=== PATIENT | female | born 1940 | race Hispanic/Latino ===

== ENCOUNTER 2017-01-20 06:31 | Day surgery (SDC) | payer MEDICARE ==
--- NOTE | 2017-01-19 20:14 | Admit Criteria Form ---
Admission Criteria Documentation: AMBULATORY SURGERY EXCEPTION CRITERIA Ambulatory Surgery Exception Criteria ( Place 'X' for any and all applicable criteria): Surgery or procedure performed on ambulatory basis may require inpatient stay for[A] ANY ONE of the following(1)(2)(3)(4)(5)(6)(7)(8)(9): [X] I. A preoperative situation, condition, or finding that warrants inpatient stay as indicated by ANY ONE of the following: [] a) Inpatient care needed because of severity of a disease or condition rather than the surgery (eg, severe cardiac or respiratory disease, severe infection) (15) (16 ) (17) (18) [] b) Emergent procedure (eg, angioplasty for acute ischemia)(19) [] c) Complex surgical approach or situation as indicated by ANY ONE of the following(3): [] i) Open approach needed instead of usual endoscopic, transcatheter, or other less invasive procedure [] ii) Difficult approach because of previous operation [] iii) Airway monitoring required after open neck procedures(20)(21) [] iv) Large mass requiring unusually extensive dissection [] v) Additional complicating feature requiring inpatient care (eg, drain management)(22(23): [X] d) Major surgery in a pt with high anesthetic risk as indicated by ANY ONE of the following (2)(3)(5)(7)(8): [X] i) ASA risk class III or higher (severe systemic disease impairing function) [D] [] ii) Advanced age (eg, older than 85 years)(14)(24) [] iii) Symptomatic heart failure(25) [] iv) Symptomatic asthma or COPD(8)(21) [] v) Morbid obesity with hemodynamic or respiratory problems(20)( 21)(26)(27) [] vi) Obstructive sleep apnea(20)(21) [] vii) Former premature infants who are younger than 60 weeks [] viii) High risk for severe postoperative abnormalities (eg, severe postoperative hypocalcemia after parathyroidectomy for severe hyperparathyroidism)(27)( 28) [] ix) Unstable angina(25) [] e) Drug-related risk requiring inpatient stay as indicated by ANY ONE of the following(5)(10)(14)(32)(33) [] i) Procedure requires discontinuing drugs or other therapy (eg , antiarrhythmic medication, antiseizure medication), which necessitates inpatient observation or treatment.(18)(31) [] ii) Major surgery and high risk drug use as indicated by ANY ONE of the following: [] 1) Active abuse of cocaine or similar drug [] 2) Monoamine oxidase inhibitor use [] 3) Other drug identified as posing risk [] f) Inadequate outpatient care situation as indicated by ANY ONE of the following(5)(10)(14)(32)(33) [] i) Patient lives remote from medical facility and procedure has urgent complication potential, and temporary nearby residence cannot be arranged [] ii) Patient will have postprocedure incapacitation and inadequate assistance at home, or alternative level of care cannot be arranged. [] iii) Patient will have long general anesthesia or procedure side effect resolution time, and competent person to stay with patient on first postoperative night at home or alternative level of care cannot be arranged. []iv) Other inadequate outpatient situation that cannot be handled by other means [] II. A perioperative event, condition, or finding that warrants inpatient stay as indicated by ANY ONE of the following (1)(2)(3): [] a) Inadequate physiologic recovery: cardiovascular, respiratory, or hemodynamic status not normal or near preoperative baseline(18) [] b) Hemodynamic instability [] c) Patient not alert with near normal or baseline mental status [] d) Temperature not normal or as expected and not appropriate for outpatient treatment of condition [] e) Ambulatory or appropriate activity level status not yet achieved post procedure [E](34)(35)(36) [] f) Operative site not appropriate (eg, unexpected or excessive drainage or bleeding) [] g) Postoperative effects not resolved or adequately managed (eg, significant pain or vomiting not appropriate for outpatient or next level of care)(10)(12) [] h) Complicating features requiring inpatient care as indicated by ANY ONE of the following(37): [] i) Severe complications of procedure (eg, bowel injury, airway compromise, vascular injury,severe hemorrhage) [] ii) Extensive (eg, dissection far beyond usual scope of procedure ) or prolonged (eg, 120 minutes beyond usual) surgery needed requiring inpatient postoperative care [] iii) Conversion to an open or complex procedure that requires inpatient care (eg, open vs laparoscopic cholecystectomy, abdominal vs vaginal hysterectomy)(38) [] iv) Comorbid condition or test result identified during or post procedure that requires inpatient care (7) [] v) Malignant hyperthermia(30) [] vi) Other complicating feature requiring inpatient care(22)(23) Inpatient stay may be needed until ALL of the following are present (1)(2)(3)(4) (5)(6)(10)(14)(33)(40): []a) Physiologic recovery: cardiovascular, respiratory, and hemodynamic status normal or near preoperative baseline []b) Hemodynamic stability []c) Patient alert, with near normal or baseline mental status []d) Temperature appropriate: patient afebrile or temperature appropriate for outpt treatment of condition []e) Activity level appropriate: ambulatory or appropriate activity level post procedure []f) Operative site appropriate as indicated by ALL of the following: []i) Site dry or with expected drainage []ii) Any blood noted is as expected for procedure. []g) Postoperative effects resolved or managed as indicated by ALL of the following: []i) Pain management appropriate for outpatient (or next level of) care(10) []ii) Minimal nausea and vomiting: if present, successfully treated with oral medication(12) []iii) Headache, dizziness, or drowsiness (if present) are mild. []h) Voiding status acceptable as indicated by ANY ONE of the following: []i) Voiding spontaneously []ii) No voiding but instructions given for follow-up in 6 to 8 hours []iii) Urinary catheter in place, and instructions given for follow-up []i) Complicating features requiring inpatient care manageable at a lower level of care(37) []j) Comorbid conditions manageable at a lower level of care(37) The original [employer] content created by [employer] has been revised. The portions of the content which have been revised are identified through the use of italic text or in bold, and [employer] has neither reviewed nor approved the modified material. All other unmodified content is copyright [employer]. Please see references footnoted in the original [employer] edition 2016
[~2017-01-20 06:31] MED LIST: FLAGYL 500 MG/100 ML 500 MG/100 ML BAG IV SCH; NACL 0.9% 1000 ML 1,000 ML IV SCH; NACL 0.9% IR ONE; PEPCID PO NR; XYLOCAINE 2% UROJET UR ONE
[2017-01-20] MEDS ORDERED: XYLOCAINE MPF 2% ONE (06:56)
[2017-01-20] MEDS ORDERED: SUBLIMAZE ONE ×2 (06:56→08:29)
[2017-01-20] MEDS ORDERED: ZOFRAN ONE ×2 (06:56)
[2017-01-20] MEDS ORDERED: DECADRON ONE (06:56)
[2017-01-20] MEDS ORDERED: DIPRIVAN 10 MG/ML IV ONE ×2 (06:56)
--- NOTE | 2017-01-20 07:13 | Anesthesia Consultation ---
Anesthesia Consult and Med Hx Date of service: 01/20/17 - Airway Anesthetic Teeth Evaluation: Edentulous ROM Head & Neck: Adequate Mental/Hyoid Distance: Adequate Mallampati Class: Class II Intubation Access Assessment: Probably Good - Pulmonary Exam CTA: Yes - Cardiac Exam Cardiac Exam: RRR - Pre-Operative Health Status ASA Pre-Surgery Classification: ASA4 Proposed Anesthetic Plan: General, MAC - Pulmonary Hx Smoking: No Hx Asthma: No Hx Respiratory Symptoms: Yes SOB: Yes (SOB) COPD: Yes (WEARS O2 AT 2LN/C) Hx Sleep Apnea: No (FILIBERTO PRE SCREEN HIGH RISK) - Cardiovascular System Hx Hypertension: Yes Hx Heart Attack/AMI: Yes (1996) Hx Angina: Yes (occasionally) Hx Pacemaker: Yes (AICD/ST CANDIE) Hx Internal Defibrillator: Yes 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
--- NOTE | 2017-01-20 07:13 | Anesthesia Day of Surgery ---
Anesthesia Day of Surgery - Day of Surgery Patient Examined: Yes Patient H&P Reviewed: Yes Patient is NPO: Yes
[2017-01-20 07:30] LABS: INR 1.21 (0.87-1.13)
[2017-01-20 07:31] LABS: Partial Thromboplastin Time 37.8 Sec. (24.2-36.6)
[2017-01-20] MEDS ORDERED: XYLOCAINE TOPICAL 2% ONE ×2 (07:35→07:36)
[2017-01-20] MEDS ORDERED: XYLOCAINE 2% UROJET ONE (07:39)
[2017-01-20] MEDS ORDERED: XYLOCAINE 2% UROJET UR ONE (08:35)
[2017-01-20] MEDS ORDERED: NACL 0.9% IR ONE (08:36)
--- NOTE | 2017-01-20 08:51 | Short Stay Summary ---
Short Stay Documentation Date of service: 01/20/17 - History H&P: obtained from office - Allergies and Medications Current Medications: Allergies codeine Adverse Reaction (Verified 06/26/14 17:48) Nausea GI UPSET Sulfa (Sulfonamide Antibiotics) Adverse Reaction (Verified 06/26/14 17:48) Unknown PT STATES REACTION IS CHILLS Home Medications Medication Instructions Recorded Confirmed Last Taken Type Alendronate Sodium 35 mg PO 1XW 06/23/15 01/19/17 1 Day Ago History Folic Acid [Folvite] 1 mg PO QDAY 06/23/15 01/19/17 1 Day Ago History Gabapentin [Neurontin] 800 mg PO Q8H 06/23/15 01/19/17 1 Day Ago History Insulin NPH/Regular [NovoLIN 70/30] 1 - 100 unit SQ TID 06/23/15 01/19/17 1 Day Ago History Ondansetron [Zofran Odt] 4 mg PO Q6H PRN 06/23/15 01/19/17 1 Day Ago History Sertraline [Zoloft] 50 mg PO QDAY 06/23/15 01/19/17 1 Day Ago History Sevelamer Carbonate [Renvela] 2 tab PO TIDWM 06/23/15 01/19/17 1 Day Ago History Sodium Bicarbonate 650 mg PO BID 06/23/15 01/19/17 1 Day Ago History Cholecalciferol (Vitamin D3) 50,000 unit PO 1XW 11/17/15 01/19/17 1 Day Ago History [Vitamin D3] Midodrine [Proamatine] 5 mg PO 3XW 11/17/15 01/19/17 1 Day Ago History [place]-3S/Dha/Epa/Fish Oil [Fish 1,200 each PO DAILY 11/17/15 01/19/17 1 Day Ago History Oil 1,200 mg Softgel] Acetaminophen [Tylenol Arthritis] 650 mg PO PRN PRN 05/28/16 01/19/17 1 Week Ago History Diphenoxylate/Atropine [Lomotil] 1 tab PO QID 05/28/16 01/19/17 1 Day Ago History Lansoprazole [Prevacid] 30 mg PO DAILY 05/28/16 01/19/17 1 Day Ago History Vit B Cplx #11/FA/C/Biot/Zn Ox 1 tab PO DAILY 05/28/16 01/19/17 1 Day Ago History [Dialyvite with Zinc Tablet] Ergocalciferol (Vitamin D2) 2,000 unit PO 1XW 07/17/16 01/19/17 1 Day Ago History [Vitamin D2] NovoLIN N 1 units SQ ACHS 07/17/16 01/19/17 1 Day Ago History Carvedilol [Coreg] 3.125 mg PO BID #60 tablet 07/21/16 01/19/17 Unknown Rx Clopidogrel [Plavix] 75 mg PO QDAY #30 tablet 07/21/16 01/19/17 Unknown Rx Active Medications Famotidine (Pepcid) 20 mg PO PREOP NR Stop: 01/20/17 23:45 Metronidazole (Flagyl 500 Mg/100 Ml) 500 mg in 100 mls @ 100 mls/hr IV PREOP JOAN Sodium Chloride (Nacl 0.9% 1000 Ml) 1,000 mls @ 100 mls/hr IV DIRECT JOAN - Brief post op/procedure progress note Date of procedure: 01/20/17 Pre-op diagnosis: chronic rt hydro Post-op diagnosis: same Procedure: cysto, rt stent exchange (6x 22cm) Anesthesia: MAC Surgeon: HARPER TOLBERT Estimated blood loss: none Pathology: none Condition: stable - Hospital course Hospital course: ceftin on chart - Disposition Condition at discharge: Stable Disposition: DISCHARGED TO HOME OR SELFCARE Short Stay Discharge Plan Follow up with: PRIMARY CARE, [Primary Care Provider] - 7 Days
--- NOTE | 2017-01-20 09:32 | Post Anesthesia Evaluation ---
- Post Anesthesia Evaluation Patient Participated: Yes Airway Patent: Yes Stable Respiratory Function: Yes Nausea/Vomiting: No Temp > 96.8F: Yes Pain Manageable: Yes Adequeate Hydration: Yes Anesthesia Complications: No Block Receding Appropriately: Not Applicable Patient on Ventilator: No
[2017-01-20] MEDS ORDERED: TYLENOL PO PRN (10:10)
--- NOTE | 2017-01-20 10:27 | Operative Report ---
PREOPERATIVE DIAGNOSIS: Right hydronephrosis. POSTOPERATIVE DIAGNOSIS: Right hydronephrosis. PROCEDURE: Cystoscopy, right double-J stent exchange (6 Algerian 22 cm with a short internal string). SURGEON: Olvin Davies MD ANESTHESIOLOGIST: IV sedation and local. ESTIMATED BLOOD LOSS: Minimal. FLUIDS: Crystalloid. COMPLICATIONS: No complications. INDICATIONS: This patient is a 76-year-old female known to our service on renal failure with hemodialysis with Dr. Rojas, primary care is Dr. Boaz Howell. She presents today with a stent exchange. She has had strictures in the past. DESCRIPTION OF PROCEDURE: The patient was taken to the operative suite, placed in a supine position. After adequate IV sedation, she was placed in a dorsal lithotomy position, prepped and draped in a sterile fashion. 1% lidocaine gel was administered per urethra. Pancystourethroscopy was performed with 22 Algerian Storz cystoscope. No bladder pathology. Obvious stent could be visualized in the left ureter. Spool Sorter film confirmed adequate position of the old stent, 0.035 Glidewire was placed up the right ureter without difficulty. The stent was also engaged with a grasper, pulled out and a new 6, 22 double-J stent was left indwelling. Bladder was drained. She tolerated the procedure well. She will be transferred to the recovery room to go home on Ceftin and follow up in the office. JOB# [id number] BRADY/SHALINI
[2017-01-20 11:01] VITALS: BP 129/50
--- NOTE | 2017-01-20 13:22 | XRay Report ---
AP ABDOMEN: History: Hydronephrosis. The abdominal gas pattern is unremarkable. Fluoroscopy was provided by radiology for urology during retrograde urography. 6 fluoroscopic images of the abdomen were obtained during right ureteral stent exchange. The right ureteral stent is in good position on the final image. IMPRESSION: Right ureteral stent exchange.
== END 2017-01-20 11:05 | disposition home or self-care (01) ==
LOC: OR 06:31
PROVIDERS: ATTEND Urology
DX: N13.30 Unspecified hydronephrosis (principal); E11.22 Type 2 diabetes mellitus with diabetic chronic kidney disease; I12.0 Hypertensive chronic kidney disease with stage 5 chronic kidney disease or end stage renal disease; N18.6 End stage renal disease; J44.9 Chronic obstructive pulmonary disease, unspecified; D64.9 Anemia, unspecified; F41.9 Anxiety disorder, unspecified; F32.9 Major depressive disorder, single episode, unspecified; Z95.810 Presence of automatic (implantable) cardiac defibrillator; Z99.2 Dependence on renal dialysis; Z86.79 Personal history of other diseases of the circulatory system
CPT/HCPCS: 36415; 52332; 74000; 82962; 84132; 85610; 85730; A4217; C1758; C1769; C2617; J2704; J3010; J7030; Q9967; J1100; J2405

== ENCOUNTER 2017-04-23 10:38 | Outpatient (CLI) | payer MEDICARE ==
--- NOTE | 2017-04-29 08:00 | Cat Scan Report ---
FINAL REPORT EXAM: CT LOWER EXTREMITY LT WO CON HISTORY: LT HIP PAIN TECHNIQUE: CT images are acquired through the left hip without contrast. Transaxial , coronal and sagittal reformations are provided. PRIORS: CT abdomen and pelvis 11/17/2015 FINDINGS: Diffuse demineralization. Mild bilateral hip osteoarthrosis. No displaced fracture. Mild degenerative findings involving the sacroiliac joints and pubic symphysis. Moderate to severe sequela of lower lumbar degenerative disc disease. Partially imaged right ureteral stent. Extensive vascular calcification. Partially imaged right thigh vascular stent. Sigmoid diverticulosis. IMPRESSION: No displaced proximal femur/pelvis fracture identified. Sensitivity of fracture detection is decreased by demineralization and degenerative findings. If patient has persistent hip pain, consider MRI.
== END 2017-04-23 10:39 | disposition home or self-care (01) ==
LOC: CT 10:38
PROVIDERS: ATTEND Registered Nurse
DX: M16.0 Bilateral primary osteoarthritis of hip (principal); M51.36 Other intervertebral disc degeneration, lumbar region; K57.30 Diverticulosis of large intestine without perforation or abscess without bleeding; I13.2 Hypertensive heart and chronic kidney disease with heart failure and with stage 5 chronic kidney disease, or end stage renal disease; I50.9 Heart failure, unspecified; N18.6 End stage renal disease; E11.22 Type 2 diabetes mellitus with diabetic chronic kidney disease; D63.1 Anemia in chronic kidney disease; E78.00 Pure hypercholesterolemia, unspecified; Z87.891 Personal history of nicotine dependence

== ENCOUNTER 2017-06-01 06:57 | Inpatient (IN) | payer MEDICARE ==
[2017-06-01] MEDS ORDERED: NACL 0.9% 1000 ML 1,000 ML IV SCH (08:00)
[2017-06-01] MEDS ORDERED: PEPCID PO NR (08:00)
--- NOTE | 2017-06-01 08:18 | Anesthesia Consultation ---
Anesthesia Consult and Med Hx Date of service: 06/01/17 - Airway Anesthetic Teeth Evaluation: Good ROM Head & Neck: Adequate Mental/Hyoid Distance: Adequate Mallampati Class: Class I Intubation Access Assessment: Probably Good - Pulmonary Exam CTA: Yes - Cardiac Exam Cardiac Exam: RRR - Pre-Operative Health Status ASA Pre-Surgery Classification: ASA3 Proposed Anesthetic Plan: General - Pulmonary Hx Smoking: No Hx Asthma: No Hx Respiratory Symptoms: Yes SOB: Yes (SOB) COPD: Yes (WEARS O2 AT 2LN/C) Hx Sleep Apnea: No (FILIBERTO PRE SCREEN HIGH RISK) - Cardiovascular System Hx Hypertension: Yes Hx Heart Attack/AMI: Yes (1996) Hx Angina: Yes (occasionally) Hx Pacemaker: Yes (AICD/ST CANDIE) Hx Internal Defibrillator: Yes Hx Valvular Heart Disease: Yes (mitral and tricuspid regurg.) Hx Heart Murmur: Yes Hx Peripheral Vascular Disease: Yes (s/p right AKA, + PAD) - Central Nervous System Hx Back Pain: Yes Hx Psychiatric Problems: Yes (anxiety/depression) - Gastrointestinal Hx Gastroesophageal Reflux Disease: Yes (on meds) - Endocrine Hx Renal Disease: Yes (M,W,F Dialysis . AVF LEFT ARM) Hx End Stage Renal Disease: Yes Hx Insulin Dependent Diabetes: Yes - Hematic Hx Anemia: Yes - Other Systems Hx Cancer: No - Additional Comments Anesthesia Medical History Comments: chronic CHF, in wheelchair, chronic pain, generalized weakness, AVF l arm, CABG ', rt thigh vascular stent.
--- NOTE | 2017-06-01 08:20 | Anesthesia Day of Surgery ---
Anesthesia Day of Surgery - Day of Surgery Patient Examined: Yes Patient H&P Reviewed: Yes Patient is NPO: Yes
[2017-06-01] MEDS ORDERED: DILAUDID ONE (09:01)
[2017-06-01] MEDS ORDERED: DIPRIVAN 10 MG/ML IV ONE (09:02)
[2017-06-01] MEDS ORDERED: XYLOCAINE MPF 2% ONE (09:08)
[2017-06-01] MEDS ORDERED: XYLOCAINE 2% UROJET ONE (09:30)
[2017-06-01 09:38] LABS: BUN/Creatinine Ratio 8.57; Calcium 7.6 mg/dL (8.4-10.2); Chloride 99.8 mmol/L (98-107); Potassium 3.9 mmol/L (3.6-5.0)
[2017-06-01 09:52] LABS: Mean Corpuscular HGB Conc 30 % (30-34); Mean Corpuscular Hemoglobin 32 pg (28-32); Mean Corpuscular Volume 104 fl (79-97); Platelet Count 187 K/mm3 (140-440); Red Blood Count 3.52 M/mm3 (3.65-5.03); Red Cell Distribution Width 18.6 % (13.2-15.2); White Blood Count 4.8 K/mm3 (4.5-11.0)
[2017-06-01 09:53] LABS: Hematocrit 36.6 % (30.3-42.9); Hemoglobin 11.1 gm/dl (10.1-14.3)
[2017-06-01] MEDS ORDERED: XYLOCAINE 2% UROJET UR ONE (10:13)
[2017-06-01] MEDS ORDERED: WATER FOR IRRIG STERILE IR ONE (10:15)
[2017-06-01] MEDS ORDERED: NARCAN 0.4 MG/1 ML IV PRN (10:44)
[2017-06-01] MEDS ORDERED: NON-FORMULARY (Acetaminophen [Tylenol Arthritis] 650 MG) PO PRN (10:46)
[2017-06-01] MEDS ORDERED: D50W (25GM) Syringe IV PRN (10:50)
--- NOTE | 2017-06-01 10:52 | Short Stay Summary ---
Short Stay Documentation Date of service: 06/01/17 - History H&P: obtained from office - Allergies and Medications Current Medications: Allergies codeine Adverse Reaction (Verified 06/26/14 17:48) Nausea GI UPSET Sulfa (Sulfonamide Antibiotics) Adverse Reaction (Verified 06/26/14 17:48) Unknown PT STATES REACTION IS CHILLS Home Medications Medication Instructions Recorded Confirmed Last Taken Type Alendronate Sodium 35 mg PO 1XW 06/23/15 05/27/17 01/19/17 17:00 History Folic Acid [Folvite] 1 mg PO QDAY 06/23/15 06/01/17 05/31/17 History Gabapentin [Neurontin] 800 mg PO Q8H 06/23/15 06/01/17 05/31/17 History Insulin NPH/Regular [NovoLIN 70/30] 1 - 100 unit SQ TID 06/23/15 06/01/17 History Ondansetron [Zofran Odt] 4 mg PO Q6H PRN 06/23/15 06/01/17 05/31/17 History Sertraline [Zoloft] 50 mg PO QDAY 06/23/15 06/01/17 05/31/17 History Sevelamer Carbonate [Renvela] 2 tab PO TIDWM 06/23/15 06/01/17 05/31/17 History Sodium Bicarbonate 650 mg PO BID 06/23/15 06/01/17 05/31/17 History Cholecalciferol (Vitamin D3) 50,000 unit PO 1XW 11/17/15 06/01/17 05/31/17 History [Vitamin D3] Midodrine [Proamatine] 5 mg PO 3XW 11/17/15 06/01/17 05/31/17 History [place]-3S/Dha/Epa/Fish Oil [Fish 1,200 each PO DAILY 11/17/15 06/01/17 05/31/17 History Oil 1,200 mg Softgel] Acetaminophen [Tylenol Arthritis] 650 mg PO PRN PRN 05/28/16 05/27/17 1 Week Ago History Diphenoxylate/Atropine [Lomotil] 1 tab PO PRN PRN 05/28/16 05/27/17 1 Day Ago History Lansoprazole [Prevacid] 30 mg PO DAILY 05/28/16 06/01/1705/31/17 History Vit B Cplx #11/FA/C/Biot/Zn Ox 1 tab PO DAILY 05/28/16 06/01/17 05/31/17 History [Dialyvite with Zinc Tablet] Ergocalciferol (Vitamin D2) 2,000 unit PO 1XW 07/17/16 06/01/17 1 Day Ago History [Vitamin D2] NovoLIN N 1 units SQ ACHS 07/17/16 06/01/17 05/30/17 History Carvedilol [Coreg] 3.125 mg PO BID #60 tablet 07/21/16 06/01/17 05/31/17 Rx Clopidogrel [Plavix] 75 mg PO QDAY #30 tablet 07/21/16 06/01/17 05/24/17 Rx Active Medications Cefazolin Sodium (Ancef/Sterile Water 2 Gm/20 Ml) 2 gm IV PREOP NR Stop: 06/01/17 21:00 Famotidine (Pepcid) 20 mg PO PREOP NR Stop: 06/01/17 12:00 Last Admin: 06/01/17 09:28 Dose: 20 mg Sodium Chloride (Nacl 0.9% 1000 Ml) 1,000 mls @ 75 mls/hr IV DIRECT JOAN Last Admin: 06/01/17 09:30 Dose: 75 mls/hr - Brief post op/procedure progress note Date of procedure: 06/01/17 Pre-op diagnosis: hydro Post-op diagnosis: same Procedure: cysto, stent exchange Anesthesia: MAC Surgeon: HARPER TOLBERT Estimated blood loss: minimal Pathology: none Condition: stable - Hospital course Hospital course: pt will get inpt dialysis from Dr. Rikki Arango - Disposition Condition at discharge: Stable Disposition: DC-01 TO HOME OR SELFCARE Short Stay Discharge Plan Follow up with: PRIMARY CARE, [Primary Care Provider] - 7 Days
[2017-06-01] MEDS ORDERED: ALENDRONATE SODIUM 35 MG PO SCH (11:00)
[2017-06-01] MEDS ORDERED: NON-FORMULARY (Ergocalciferol (Vitamin D2) [Vitamin D2] 2,000 UNIT) PO SCH (11:00)
[2017-06-01] MEDS ORDERED: NON-FORMULARY (Gabapentin [Neurontin] 800 MG) PO SCH (11:00)
[2017-06-01] MEDS ORDERED: ANCEF/STERILE WATER 2 GM/20 ML IV NR (11:00)
[2017-06-01 11:26] LABS: Blastocytes % (Manual) 0 %
[2017-06-01 11:27] LABS: Anisocytosis Few; Diff Status Complete
[2017-06-01] MEDS ORDERED: TYLENOL PO PRN (11:39)
[2017-06-01] MEDS ORDERED: NACL 0.9% 100 ML IV PRN (11:41)
[2017-06-01] MEDS ORDERED: MORPHINE IV PRN (12:00)
[2017-06-01] MEDS ORDERED: NACL 0.45% 1000 ML 1,000 ML IV SCH (12:00)
[2017-06-01] MEDS ORDERED: LOMOTIL PO PRN (12:00)
--- NOTE | 2017-06-01 12:08 | Operative Report ---
PREOPERATIVE DIAGNOSIS: Right hydronephrosis, status post stent. SECONDARY DIAGNOSIS: Renal failure with dialysis. PROCEDURE PERFORMED: Cystoscopy, right retrograde pyelogram, right double-J stent exchange (6-Israeli 24-cm with a short internal string). SURGEON: Olvin Davies MD ANESTHESIOLOGIST: IV sedation and local. ESTIMATED BLOOD LOSS: Minimal. FLUIDS: Crystalloid. COMPLICATIONS: No complications. INDICATIONS: This patient is a 76-year-old female with history of right hydronephrosis and renal failure due to diabetes. She has been getting stent exchanged to minimize her infection. She still makes urine. DESCRIPTION OF PROCEDURE: The patient was taken to the operative suite, placed in a supine position. After adequate IV sedation, he was placed in a dorsal lithotomy position. Lidocaine 1% gel was administered per urethra. Cystoscopy was performed. The stent could be appreciated. It was pulled out through the urethra. A 0.035 Glidewire was advanced up the right collecting system. Retrograde pyelogram revealed the collecting system was intact. A 6-Israeli, 24 cm double-J stent was exchanged without difficulty. Bladder was drained, taken to recovery room. She will be admitted to the hospital for hemodialysis. I discussed this with Dr Taran Arango. JOB# [id number] [facility]
[2017-06-01] MEDS: NOVOLOG SUB-Q SCH ×3 (12:41→23:35)
[2017-06-01] MEDS: NEURONTIN PO SCH ×2 (14:21→23:39)
--- NOTE | 2017-06-01 14:49 | Fluoroscopy Report ---
RETROGRADE PYELOGRAM: History: Hydronephrosis. Fluoroscopy was provided by radiology during right ureteral stent exchange by urology. The stent is in good position on the final image and adequately drains the right collecting system. Please correlate with the procedural report. Impression: Successful right ureteral stent exchange.
[2017-06-01] MEDS: NORCO 5/325 PO PRN (18:22)
[2017-06-01] MEDS ORDERED: ZOFRAN ODT PO PRN (20:40)
[2017-06-01] MEDS ORDERED: INSULIN NPH SQ SCH (22:00)
--- NOTE | 2017-06-01 23:07 | XRay Report ---
FINAL REPORT EXAM: XR WRIST 2V RT HISTORY: pain TECHNIQUE: Right wrist two views 2 images PRIORS: None. FINDINGS: Osteopenia is noted. There is an oblique fracture of the distal ulnar diaphysis with approximately 4 millimeters of ulnar displacement and 1.5 millimeters of posterior displacement of the distal fragment. There is slight volar angulation. Soft tissue calcifications are seen in the forearm. IMPRESSION: 1. Distal ulna fracture.
[2017-06-01] MEDS: COREG PO SCH (23:33)
[2017-06-01] MEDS: SODIUM BICARBONATE PO SCH (23:39)
[2017-06-01] MEDS: XANAX PO PRN (23:44)
--- NOTE | 2017-06-02 03:30 | History and Physical Report ---
History of Present Illness Date of admission: 06/01/17 11:37 Chief complaint: Im not feeling good History of present illness: 76 YO Female with Chronic Respiratory Failure on Home oxygen,HTN, [place], PVD, ESRD on HD, DM, CHF, MR, TR, CAD S/P CABG admitted directly to hospitalist service at the request of Dr. Davies for dialysis. Pt seen and evaluated upon arrival to floor postoperatively. Pt acknowledges shortness of breath, and not feeling wee for the past 2 days. Pt son at bedside during exam and interview. Nephrology consulted for dialysis. Pt denies fever, chills, CP, Palpitations, NVD, Syncope, productive cough, or recent ill contacts. Past History Past Medical History: CAD, diabetes, ESRD, heart failure, hypertension, PVD Past Surgical History: CABG, Other (Vascular stent, R AKA, AVF) Social history: . denies: smoking, alcohol abuse, prescription drug abuse Family history: CAD, hypertension Medications and Allergies Allergies Allergy/AdvReac Type Severity Reaction Status Date / Time codeine AdvReac Nausea Verified 06/26/14 17:48 Sulfa (Sulfonamide AdvReac Unknown Verified 06/26/14 17:48 Antibiotics) Home Medications Medication Instructions Recorded Confirmed Last Taken Type Alendronate Sodium 35 mg PO 1XW 06/23/15 05/27/17 01/19/17 17:00 History Folic Acid [Folvite] 1 mg PO QDAY 06/23/15 06/01/17 05/31/17 History Gabapentin [Neurontin] 800 mg PO Q8H 06/23/15 06/01/17 05/31/17 History Insulin NPH/Regular [NovoLIN 70/30] 1 - 100 unit SQ TID 06/23/15 06/01/17 History Ondansetron [Zofran Odt] 4 mg PO Q6H PRN 06/23/15 06/01/17 05/31/17 History Sertraline [Zoloft] 50 mg PO QDAY 06/23/15 06/01/17 05/31/17 History Sevelamer Carbonate [Renvela] 2 tab PO TIDWM 06/23/15 06/01/17 05/31/17 History Sodium Bicarbonate 650 mg PO BID 06/23/15 06/01/17 05/31/17 History Cholecalciferol (Vitamin D3) 50,000 unit PO 1XW 11/17/15 06/01/17 05/31/17 History [Vitamin D3] Midodrine [Proamatine] 5 mg PO 3XW 11/17/15 06/01/17 05/31/17 History [place]-3S/Dha/Epa/Fish Oil [Fish 1,200 each PO DAILY 11/17/15 06/01/17 05/31/17 History Oil 1,200 mg Softgel] Acetaminophen [Tylenol Arthritis] 650 mg PO PRN PRN 05/28/16 05/27/17 1 Week Ago History Diphenoxylate/Atropine [Lomotil] 1 tab PO PRN PRN 05/28/16 05/27/17 1 Day Ago History Lansoprazole [Prevacid] 30 mg PO DAILY 05/28/16 06/01/17 05/31/17 History Vit B Cplx #11/FA/C/Biot/Zn Ox 1 tab PO DAILY 05/28/16 06/01/17 05/31/17 History [Dialyvite with Zinc Tablet] Ergocalciferol (Vitamin D2) 2,000 unit PO 1XW 07/17/16 06/01/17 1 Day Ago History [Vitamin D2] NovoLIN N 1 units SQ ACHS 07/17/16 06/01/17 05/30/17 History Carvedilol [Coreg] 3.125 mg PO BID #60 tablet 07/21/16 06/01/17 05/31/17 Rx Clopidogrel [Plavix] 75 mg PO QDAY #30 tablet 07/21/16 06/01/17 05/24/17 Rx Active Meds: Active Medications Acetaminophen (Tylenol) 500 mg PO Q6H PRN PRN Reason: Pain, Mild (1-3) Acetaminophen/Hydrocodone Bitart ([place] 5/325) 2 each PO Q6H PRN PRN Reason: Pain, Moderate (4-6) Last Admin: 06/01/17 18:22 Dose: 2 each Alprazolam (Xanax) 0.5 mg PO Q12HR PRN PRN Reason: Anxiety Last Admin: 06/01/17 23:44 Dose: 0.25 mg Carvedilol (Coreg) 3.125 mg PO BID JOAN Last Admin: 06/01/17 23:33 Dose: Not Given Clopidogrel Bisulfate (Plavix) 75 mg PO QDAY [facility] [place] Dextrose (D50w (25gm) Syringe) 50 ml IV PRN PRN PRN Reason: Hypoglycemia Diphenoxylate HCl/Atropine (Lomotil) 1 tab PO PRN PRN PRN Reason: Diarrhea Folic Acid (Folvite) 1 mg PO QDAY [facility] Gabapentin (Neurontin) 800 mg PO Q8HR [facility] [place] Last Admin: 06/01/17 23:39 Dose: 800 mg Sodium Chloride (Nacl 0.45% 1000 Ml) 1,000 mls @ 42 mls/hr IV DIRECT JOAN Sodium Chloride (Nacl 0.9%) 100 mls @ 999 mls/hr IV GUDELIA PRN PRN Reason: Hypotension Insulin Aspart (Novolog) 0 units SUB-Q ACHS JOAN PRN Reason: Protocol Last Admin: 06/01/17 23:35 Dose: Not Given Midodrine (Proamatine) 5 mg PO MoWeFr [facility] [place] Miscellaneous Medication (Alendronate Sodium [Alendronate Sodium]) 35 mg PO 1XW [facility] Miscellaneous Medication (Cholecalciferol (Vitamin D3) [Vitamin D3]) 50,000 unit PO 1XW JOAN Miscellaneous Medication (Ergocalciferol (Vitamin D2) [Vitamin D2]) 2,000 unit PO 1XW [facility] Miscellaneous Medication (Novolin N) 1 units SQ ACHS [facility] Morphine Sulfate (Morphine) 2 mg IV Q4H PRN PRN Reason: Pain, Moderate (4-6) Multivit/Ca Carb/B Cmplx/FA/Prenat (Renal Caps) 1 cap PO QDAY [facility] [place] Naloxone HCl (Narcan 0.4 Mg/1 Ml) 0.1 mg IV Q2MIN PRN PRN Reason: Res Rate </= 8 or 02 SAT < 92% Ondansetron HCl (Zofran Odt) 4 mg PO Q6H PRN PRN Reason: Nausea Pantoprazole Sodium (Protonix) 40 mg PO DAILY [facility] [place] Sertraline HCl (Zoloft) 50 mg PO QDAY [facility] Sevelamer Carbonate (Renvela) 1,600 mg PO TIDWM [facility] Sodium Bicarbonate (Sodium Bicarbonate) 650 mg PO BID [facility] Last Admin: 06/01/17 23:39 Dose: 650 mg Review of Systems Constitutional: no weight loss, no weight gain, no fever, no chills, no sweats Ears, nose, mouth and throat: no ear pain, no ear discharge, no tinnitis, no decreased hearing, no nose pain, no nasal congestion, no nasal discharge Breasts: no change in shape, no swelling, no mass Cardiovascular: shortness of breath, no chest pain, no orthopnea, no palpitations, no syncope Respiratory: no cough with sputum, no excessive sputum, no hemoptysis, no dyspnea on exertion Gastrointestinal: no nausea, no vomiting, no diarrhea, no constipation, no change in bowel habits, no hematemesis Genitourinary Female: no pelvic pain, no flank pain, no menorrhagia, no dysuria Rectal: no pain, no incontinence, no bleeding Musculoskeletal: no neck stiffness, no neck pain, no shooting arm pain, no low back pain, no shooting leg pain Integumentary: no rash, no pruritis, no redness, no sores, no wounds, no jaundice Neurological: no transient paralysis, no paralysis, no weakness, no parathesias , no numbness, no tingling, no seizures Psychiatric: no anxiety, no memory loss, no change in sleep habits, no sleep disturbances, no insomnia Endocrine: no cold intolerance, no heat intolerance, no polyphagia, no excessive thirst, no polydipsia, no polyuria Hematologic/Lymphatic: no easy bruising, no easy bleeding Allergic/Immunologic: no urticaria, no allergic rhinitis, no wheezing Exam - Constitutional Vitals: Temp Pulse Resp BP Pulse Ox 99.5 F 57 L 17 82/27 80 L 06/02/17 02:09 06/02/17 02:09 06/02/17 02:09 06/02/17 02:09 06/02/17 02:09 General appearance: Present: mild distress, cachectic - EENT Eyes: Present: PERRL ENT: hearing intact, clear oral mucosa - Neck Neck: Present: supple, normal ROM - Respiratory Respiratory: bilateral: diminished - Cardiovascular Heart Sounds: Present: S1 & S2. Absent: rub, click Peripheral Pulses: within normal limits - Abdominal General gastrointestinal: Present: soft, non-tender, non-distended, normal bowel sounds Female genitourinary: Present: normal - Integumentary Integumentary: Present: clear, dry, decreased turgor - Musculoskeletal Musculoskeletal: generalized weakness - Psychiatric Psychiatric: appropriate mood/affect, intact judgment & insight - Neurologic Neurologic: CNII-XII intact, moves all extremities Results - Labs CBC & Chem 7: 06/01/17 09:15 06/01/17 09:15 Labs: Abnormal lab results 06/01/17 06/01/17 06/01/17 Range/Units 09:15 09:15 09:29 RBC 3.52 L (3.65-5.03) M/mm3 MCV 104 H (79-97) fl RDW 18.6 H (13.2-15.2) % Seg Neuts % (Manual) 81.0 H (40.0-70.0) % Lymphocytes % (Manual) 7.0 L (13.4-35.0) % Lymphocytes # (Manual) 0.3 L (1.2-5.4) K/mm3 BUN 30 H (7-17) mg/dL Creatinine 3.5 H (0.7-1.2) mg/dL Glucose 124 H (65-100) mg/dL POC Glucose 114 H (70-105) Calcium 7.6 L (8.4-10.2) mg/dL 06/01/17 06/01/17 Range/Units 18:49 22:56 RBC (3.65-5.03) M/mm3 MCV (79-97) fl RDW (13.2-15.2) % Seg Neuts % (Manual) (40.0-70.0) % Lymphocytes % (Manual) (13.4-35.0) % Lymphocytes # (Manual) (1.2-5.4) K/mm3 BUN (7-17) mg/dL Creatinine (0.7-1.2) mg/dL Glucose (65-100) mg/dL POC Glucose 136 H 157 H (70-105) Calcium (8.4-10.2) mg/dL Assessment and Plan - Patient Problems (1) Acute and chronic respiratory failure with hypoxia Current Visit: Yes Status: Acute Plan to address problem: Supplemental oxygen, nebs, aspiration precautions, supportive care, pulmonary toilet, dialysis as per renal team. (2) HTN (hypertension) Current Visit: Yes Status: Acute Qualifiers: Hypertension type: H Plan to address problem: Monitor bp q shift, resume current medication (3) Diabetes mellitus Current Visit: No Status: Chronic Qualifiers: Diabetes mellitus type: type 2 Diabetes mellitus complication status: with circulatory complication Diabetes mellitus complication detail: D Diabetic retinopathy severity: D Proliferative retinopathy type: P Diabetes mellitus macular edema: D Diabetes mellitus senior living insulin use: D Laterality: L Chronic kidney disease stage: C Plan to address problem: ADA diet, insulin, accu check (4) End-stage renal disease on hemodialysis Current Visit: No Status: Chronic Plan to address problem: Nephrology consulted for dialysis (5) CAD (coronary artery disease) Current Visit: Yes Status: Acute Qualifiers: Coronary Disease-Associated Artery/Lesion type: C [place] vs. transplanted heart: N Associated angina: A Plan to address problem: risk factor reduction, low choesterol/renal diet (6) DVT prophylaxis Current Visit: No Status: Acute
[2017-06-02] MEDS: NOVOLOG SUB-Q SCH ×4 (08:06→21:58)
[2017-06-02] MEDS: RENVELA PO SCH ×3 (08:29→17:13)
[2017-06-02] MEDS ORDERED: ZINC PO SCH (10:00)
[2017-06-02] MEDS ORDERED: BIOT PO SCH (10:00)
[2017-06-02] MEDS ORDERED: VIT B CPLX PO SCH (10:00)
[2017-06-02] MEDS ORDERED: ZN OX PO SCH (10:00)
[2017-06-02] MEDS ORDERED: [UNRECOGNIZED DRUG - OTHER] PO SCH (10:00)
[2017-06-02] MEDS ORDERED: NON-FORMULARY (Lansoprazole [Prevacid] 30 MG) PO SCH (10:00)
[2017-06-02] MEDS ORDERED: Renal Caps PO SCH (10:00)
--- NOTE | 2017-06-02 10:07 | Consultation ---
History of Present Illness - Reason for Consult Consult date: 06/02/17 end stage renal disease Requesting physician: HARPER DAVIES - History of Present Illness 76 YO Female with Chronic Respiratory Failure on Home oxygen,HTN, [place], PVD, ESRD on HD, DM, CHF, MR, TR, CAD S/P CABG admitted directly to hospitalist service at the request of Dr. Davies for dialysis. Pt seen and evaluated upon arrival to floor postoperatively. Pt acknowledges shortness of breath, and not feeling wee for the past 2 days. Pt son at bedside during exam and interview. Nephrology consulted for dialysis. Pt denies fever, chills, CP, Palpitations, NVD, Syncope, productive cough, or recent ill contacts. Review of Systems Constitutional: no weight loss, no weight gain, no fever, no chills, no sweats Ears, nose, mouth and throat: no ear pain, no ear discharge, no tinnitis, no decreased hearing, no nose pain, no nasal congestion, no nasal discharge Breasts: no change in shape, no swelling, no mass Cardiovascular: shortness of breath, no chest pain, no orthopnea, no palpitations, no syncope Respiratory: no cough with sputum, no excessive sputum, no hemoptysis, no dyspnea on exertion Gastrointestinal: no nausea, no vomiting, no diarrhea, no constipation, no change in bowel habits, no hematemesis Genitourinary Female: no pelvic pain, no flank pain, no menorrhagia, no dysuria Rectal: no pain, no incontinence, no bleeding Musculoskeletal: no neck stiffness, no neck pain, no shooting arm pain, no low back pain, no shooting leg pain Integumentary: no rash, no pruritis, no redness, no sores, no wounds, no jaundice Neurological: no transient paralysis, no paralysis, no weakness, no parathesias , no numbness, no tingling, no seizures Psychiatric: no anxiety, no memory loss, no change in sleep habits, no sleep disturbances, no insomnia Endocrine: no cold intolerance, no heat intolerance, no polyphagia, no excessive thirst, no polydipsia, no polyuria Hematologic/Lymphatic: no easy bruising, no easy bleeding Allergic/Immunologic: no urticaria, no allergic rhinitis, no wheezing Past History Past Medical History: CAD, diabetes, ESRD, heart failure, hypertension, PVD Past Surgical History: CABG, Other (Vascular stent, R AKA, AVF) Social history: . denies: smoking, alcohol abuse, prescription drug abuse Family history: CAD, hypertension Medications and Allergies Allergies Allergy/AdvReac Type Severity Reaction Status Date / Time codeine AdvReac Nausea Verified 06/26/14 17:48 Sulfa (Sulfonamide AdvReac Unknown Verified 06/26/14 17:48 Antibiotics) Home Medications Medication Instructions Recorded Confirmed Last Taken Type Alendronate Sodium 35 mg PO 1XW 06/23/15 05/27/17 01/19/17 17:00 History Folic Acid [Folvite] 1 mg PO QDAY 06/23/15 06/01/17 05/31/17 History Gabapentin [Neurontin] 800 mg PO Q8H 06/23/15 06/01/17 05/31/17 History Insulin NPH/Regular [NovoLIN 70/30] 1 - 100 unit SQ TID 06/23/15 06/01/17 History Ondansetron [Zofran Odt] 4 mg PO Q6H PRN 06/23/15 06/01/17 05/31/17 History Sertraline [Zoloft] 50 mg PO QDAY 06/23/15 06/01/17 05/31/17 History Sevelamer Carbonate [Renvela] 2 tab PO TIDWM 06/23/15 06/01/17 05/31/17 History Sodium Bicarbonate 650 mg PO BID 06/23/15 06/01/17 05/31/17 History Cholecalciferol (Vitamin D3) 50,000 unit PO 1XW 11/17/15 06/01/17 05/31/17 History [Vitamin D3] Midodrine [Proamatine] 5 mg PO 3XW 11/17/15 06/01/17 05/31/17 History [place]-3S/Dha/Epa/Fish Oil [Fish 1,200 each PO DAILY 11/17/15 06/01/17 05/31/17 History Oil 1,200 mg Softgel] Acetaminophen [Tylenol Arthritis] 650 mg PO PRN PRN 05/28/16 05/27/17 1 Week Ago History Diphenoxylate/Atropine [Lomotil] 1 tab PO PRN PRN 05/28/16 05/27/17 1 Day Ago History Lansoprazole [Prevacid] 30 mg PO DAILY 05/28/16 06/01/17 05/31/17 History Vit B Cplx #11/FA/C/Biot/Zn Ox 1 tab PO DAILY 05/28/16 06/01/17 05/31/17 History [Dialyvite with Zinc Tablet] Ergocalciferol (Vitamin D2) 2,000 unit PO 1XW 07/17/16 06/01/17 1 Day Ago History [Vitamin D2] NovoLIN N 1 units SQ ACHS 07/17/16 06/01/17 05/30/17 History Carvedilol [Coreg] 3.125 mg PO BID #60 tablet 07/21/16 06/01/17 05/31/17 Rx Clopidogrel [Plavix] 75 mg PO QDAY #30 tablet 07/21/16 06/01/17 05/24/17 Rx Active Meds: Active Medications Acetaminophen (Tylenol) 500 mg PO Q6H PRN PRN Reason: Pain, Mild (1-3) Acetaminophen/Hydrocodone Bitart ([place] 5/325) 2 each PO Q6H PRN PRN Reason: Pain, Moderate (4-6) Last Admin: 06/01/17 18:22 Dose: 2 each Alprazolam (Xanax) 0.5 mg PO Q12HR PRN PRN Reason: Anxiety Last Admin: 06/01/17 23:44 Dose: 0.25 mg Carvedilol (Coreg) 3.125 mg PO BID [facility] Last Admin: 06/01/17 23:33 Dose: Not Given Clopidogrel Bisulfate (Plavix) 75 mg PO QDAY [facility] Dextrose (D50w (25gm) Syringe) 50 ml IV PRN PRN PRN Reason: Hypoglycemia Diphenoxylate HCl/Atropine (Lomotil) 1 tab PO PRN PRN PRN Reason: Diarrhea Folic Acid (Folvite) 1 mg PO QDAY [facility] Gabapentin (Neurontin) 800 mg PO Q8HR [facility] Last Admin: 06/01/17 23:39 Dose: 800 mg Sodium Chloride (Nacl 0.45% 1000 Ml) 1,000 mls @ 42 mls/hr IV DIRECT JOAN Sodium Chloride (Nacl 0.9%) 100 mls @ 999 mls/hr IV GUDELIA PRN PRN Reason: Hypotension Insulin Aspart (Novolog) 0 units SUB-Q ACHS JOAN PRN Reason: Protocol Last Admin: 06/02/17 08:06 Dose: Not Given Midodrine (Proamatine) 5 mg PO MoWeFr [facility] Miscellaneous Medication (Alendronate Sodium [Alendronate Sodium]) 35 mg PO 1XW [facility] Miscellaneous Medication (Cholecalciferol (Vitamin D3) [Vitamin D3]) 50,000 unit PO 1XW JOAN Miscellaneous Medication (Ergocalciferol (Vitamin D2) [Vitamin D2]) 2,000 unit PO 1XW JOAN Miscellaneous Medication (Novolin N) 1 units SQ ACHS [facility] Morphine Sulfate (Morphine) 2 mg IV Q4H PRN PRN Reason: Pain, Moderate (4-6) Multivit/Ca Carb/B Cmplx/FA/Prenat (Renal Caps) 1 cap PO QDAY [facility] Naloxone HCl (Narcan 0.4 Mg/1 Ml) 0.1 mg IV Q2MIN PRN PRN Reason: Res Rate </= 8 or 02 SAT < 92% Ondansetron HCl (Zofran Odt) 4 mg PO Q6H PRN PRN Reason: Nausea Pantoprazole Sodium (Protonix) 40 mg PO DAILY [facility] Sertraline HCl (Zoloft) 50 mg PO QDAY [facility] Sevelamer Carbonate (Renvela) 1,600 mg PO TIDWM [facility] Last Admin: 06/02/17 08:29 Dose: 1,600 mg Sodium Bicarbonate (Sodium Bicarbonate) 650 mg PO BID [facility] Last Admin: 06/01/17 23:39 Dose: 650 mg Exam - Vital Signs Vital signs: Vital Signs Temp Pulse Resp BP Pulse Ox 98 F 68 20 131/72 99 06/01/17 08:40 06/01/17 08:40 06/01/17 08:40 06/01/17 08:40 06/01/17 08:40 - Physical Exam Narrative exam: General appearance: Present: mild distress, cachectic - EENT Eyes: Present: PERRL ENT: hearing intact, clear oral mucosa - Neck Neck: Present: supple, normal ROM - Respiratory Respiratory: bilateral: diminished - Cardiovascular Heart Sounds: Present: S1 & S2. Absent: rub, click Peripheral Pulses: within normal limits - Abdominal General gastrointestinal: Present: soft, non-tender, non-distended, normal bowel sounds Female genitourinary: Present: normal - Integumentary Integumentary: Present: clear, dry, decreased turgor - Musculoskeletal Musculoskeletal: generalized weakness - Psychiatric Psychiatric: appropriate mood/affect, intact judgment & insight - Neurologic Neurologic: CNII-XII intact, moves all extremities Results - Lab Results 06/01/17 09:15 06/01/17 09:15 Most recent lab results Calcium 7.6 mg/dL (8.4-10.2) L 06/01/17 09:15 Assessment and Plan Impression: * esrd * htn * chronic pain * anemia in esrd * Plan: * HD q MWF * epoen with hd * renal diet * strict i/os * uf with hd as tolerated * dc home from renal standpoint
[2017-06-02] MEDS: SODIUM BICARBONATE PO SCH ×2 (10:30→21:48)
[2017-06-02] MEDS: FOLVITE PO SCH (10:31)
[2017-06-02] MEDS: PROTONIX PO SCH (10:31)
[2017-06-02] MEDS: ZOLOFT PO SCH (10:31)
[2017-06-02] MEDS: NORCO 5/325 PO PRN (10:31)
[2017-06-02] MEDS: COREG PO SCH ×2 (10:34→21:54)
[2017-06-02] MEDS: PLAVIX PO SCH (10:34)
[2017-06-02] MEDS ORDERED: PROAMATINE PO SCH (12:00)
[2017-06-02] MEDS: NEURONTIN PO SCH ×3 (15:40→22:17)
--- NOTE | 2017-06-02 16:57 | Progress Note ---
Assessment and Plan Assessment and plan: 76 YO Female with Chronic Respiratory Failure on Home oxygen,HTN, [place], PVD, ESRD on HD, DM, CHF, MR, TR, CAD S/P CABG admitted directly at the request of Dr. Davies for dialysis, following cysto with stent exchange and complain of shortenss of breath Pt seen and evaluated upon arrival to floor postoperatively. Pt acknowledges shortness of breath, and not feeling well for the past 2 days. Pt denies fever, chills, CP, Palpitations, NVD, Syncope, productive cough, or recent ill contacts. Distal ulnar fracture on the right * Mechanism of injury, unknown to me, she denies any fall. Await Ortho input * pain control ESRD * Nephrology following. * S/P cysto, stent exchange HTN * Continue current medications ANEMIA OF CHRONIC DISEASE * Stable ACUTE ON CHRONIC RESPIRATORY FAILURE * Continue supplemental oxygen, Pulmonary toilet, Nebs prn, check chest xray. PVD/CAD * Coreg, plavix, asa * S/P Right AKA DM * Stable, continue current accu checks, insulin. DVT/GI Plan discussed with patient, if no intervention will plan on discharge in am History Interval history: Patient seen and examined in no acute distress. complains of pain in the right upper ext. Hospitalist Physical - Physical exam Narrative exam: VITAL SIGNS: Reviewed. GENERAL: The patient is cachetics, in mild distress, Vital signs as documented. HEAD: No signs of head trauma. EYES: Pupils are equal. Extraocular motions intact. EARS: Hearing grossly intact. MOUTH: Oropharynx is normal. NECK: No adenopathy, no JVD. CHEST: Chest with clear breath sounds bilaterally. No wheezes, rales, or rhonchi. CARDIAC: Regular rate and rhythm. S1 and S2, without murmurs, gallops, or rubs. VASCULAR: Trace Edema. Peripheral pulses normal and equal in all extremities. ABDOMEN: Soft, without detectable tenderness. No sign of distention. No rebound or guarding, and no masses palpated. Bowel Sounds normal. MUSCULOSKELETAL: LROM right upper ext, mild swelling noted, Right AKA, Extremities without clubbing, cyanosis. Trace edema. NEUROLOGIC EXAM: Alert and oriented x 3. No focal sensory or strength deficits. Speech normal. Follows commands. PSYCHIATRIC: Mood normal. SKIN: No rash or lesions. - Constitutional Vitals: Temp Pulse Resp BP Pulse Ox 98.8 F 60 20 125/44 97 06/02/17 14:45 06/02/17 14:48 06/02/17 14:45 06/02/17 14:45 06/02/17 14:48 General appearance: Present: mild distress, cachectic - EENT Eyes: Present: PERRL, EOM intact Results - Labs CBC & Chem 7: 06/01/17 09:15 06/01/17 09:15 Labs: Laboratory Last Values WBC 4.8 K/mm3 (4.5-11.0) 06/01/17 09:15 RBC 3.52 M/mm3 (3.65-5.03) L 06/01/17 09:15 Hgb 11.1 gm/dl (10.1-14.3) 06/01/17 09:15 Hct 36.6 % (30.3-42.9) 06/01/17 09:15 MCV 104 fl (79-97) H 06/01/17 09:15 MCH 32 pg (28-32) 06/01/17 09:15 MCHC 30 % (30-34) 06/01/17 09:15 RDW 18.6 % (13.2-15.2) H 06/01/17 09:15 Plt Count 187 K/mm3 (140-440) 06/01/17 09:15 Baso % (Auto) [employer] 06/01/17 09:15 Add Manual Diff Complete 06/01/17 09:15 Total Counted 100 06/01/17 09:15 Seg Neuts % (Manual) 81.0 % (40.0-70.0) H 06/01/17 09:15 Band Neutrophils % 3.0 % 06/01/17 09:15 Lymphocytes % (Manual) 7.0 % (13.4-35.0) L 06/01/17 09:15 Reactive Lymphs % (Man) 0 % 06/01/17 09:15 Monocytes % (Manual) 7.0 % (0.0-7.3) 06/01/17 09:15 Eosinophils % (Manual) 1.0 % (0.0-4.3) 06/01/17 09:15 Basophils % (Manual) 1.0 % (0.0-1.8) 06/01/17 09:15 Metamyelocytes % 0 % 06/01/17 09:15 Myelocytes % 0 % 06/01/17 09:15 Promyelocytes % 0 % 06/01/17 09:15 Blast Cells % 0 % 06/01/17 09:15 Nucleated RBC % Not Reportable 06/01/17 09:15 Seg Neutrophils # Man 3.9 K/mm3 (1.8-7.7) 06/01/17 09:15 Band Neutrophils # 0.1 K/mm3 06/01/17 09:15 Lymphocytes # (Manual) 0.3 K/mm3 (1.2-5.4) L 06/01/17 09:15 Abs React Lymphs (Man) 0.0 K/mm3 06/01/17 09:15 Monocytes # (Manual) 0.3 K/mm3 (0.0-0.8) 06/01/17 09:15 Eosinophils # (Manual) 0.0 K/mm3 (0.0-0.4) 06/01/17 09:15 Basophils # (Manual) 0.0 K/mm3 (0.0-0.1) 06/01/17 09:15 Metamyelocytes # 0.0 K/mm3 06/01/17 09:15 Myelocytes # 0.0 K/mm3 06/01/17 09:15 Promyelocytes # 0.0 K/mm3 06/01/17 09:15 Blast Cells # 0.0 K/mm3 06/01/17 09:15 WBC Morphology Not Reportable 06/01/17 09:15 Hypersegmented Neuts Not Reportable 06/01/17 09:15 Hyposegmented Neuts Not Reportable 06/01/17 09:15 Hypogranular Neuts Not Reportable 06/01/17 09:15 Smudge Cells Not Reportable 06/01/17 09:15 Toxic Granulation Not Reportable 06/01/17 09:15 Toxic Vacuolation Not Reportable 06/01/17 09:15 Dohle Bodies Not Reportable 06/01/17 09:15 Pelger-Huet Anomaly Not Reportable 06/01/17 09:15 Ludin Rods Not Reportable 06/01/17 09:15 Platelet Estimate Not Reportable 06/01/17 09:15 Clumped Platelets Not Reportable 06/01/17 09:15 Plt Clumps, EDTA Not Reportable 06/01/17 09:15 Large Platelets Not Reportable 06/01/17 09:15 Giant Platelets Not Reportable 06/01/17 09:15 Platelet Satelliting Not Reportable 06/01/17 09:15 Plt Morphology Comment Not Reportable 06/01/17 09:15 RBC Morphology Not Reportable 06/01/17 09:15 Dimorphic RBCs Not Reportable 06/01/17 09:15 Polychromasia Not Reportable 06/01/17 09:15 Hypochromasia Not Reportable 06/01/17 09:15 Poikilocytosis Not Reportable 06/01/17 09:15 Anisocytosis Few 06/01/17 09:15 Microcytosis Not Reportable 06/01/17 09:15 Macrocytosis Not Reportable 06/01/17 09:15 Spherocytes Not Reportable 06/01/17 09:15 Pappenheimer Bodies Not Reportable 06/01/17 09:15 Sickle Cells Not Reportable 06/01/17 09:15 Target Cells Not Reportable 06/01/17 09:15 Tear Drop Cells Not Reportable 06/01/17 09:15 Ovalocytes Not Reportable 06/01/17 09:15 Helmet Cells Not Reportable 06/01/17 09:15 Aguirre-[place] Bodies Not Reportable 06/01/17 09:15 [place] Rings Not Reportable 06/01/17 09:15 [place] Cells Not Reportable 06/01/17 09:15 Bite Cells Not Reportable 06/01/17 09:15 Crenated Cell Not Reportable 06/01/17 09:15 Elliptocytes Not Reportable 06/01/17 09:15 Acanthocytes (Spur) Not Reportable 06/01/17 09:15 Rouleaux Not Reportable 06/01/17 09:15 Hemoglobin C Crystals Not Reportable 06/01/17 09:15 Schistocytes Not Reportable 06/01/17 09:15 Malaria parasites Not Reportable 06/01/17 09:15 Luciano Bodies Not Reportable 06/01/17 09:15 Hem Pathologist Commnt No 06/01/17 09:15 Sodium 138 mmol/L (137-145) 06/01/17 09:15 Potassium 3.9 mmol/L (3.6-5.0) 06/01/17 09:15 Chloride 99.8 mmol/L (98-107) 06/01/17 09:15 Carbon Dioxide 26 mmol/L (22-30) 06/01/17 09:15 Anion Gap 16 mmol/L 06/01/17 09:15 BUN 30 mg/dL (7-17) H 06/01/17 09:15 Creatinine 3.5 mg/dL (0.7-1.2) H 06/01/17 09:15 Estimated GFR 13 ml/min 06/01/17 09:15 BUN/Creatinine Ratio 8.57 % 06/01/17 09:15 Glucose 124 mg/dL (65-100) H 06/01/17 09:15 POC Glucose 145 (70-105) H 06/02/17 11:49 Calcium 7.6 mg/dL (8.4-10.2) L 06/01/17 09:15 - Imaging and Cardiology Chest x-ray: pending
[2017-06-02] MEDS: XANAX PO PRN (21:52)
[2017-06-03 04:45] LABS: Hematocrit 30.3 % (30.3-42.9); Hemoglobin 9.4 gm/dl (10.1-14.3); Mean Corpuscular HGB Conc 31 % (30-34); Mean Corpuscular Hemoglobin 32 pg (28-32); Mean Corpuscular Volume 103 fl (79-97); Platelet Count 116 K/mm3 (140-440); Red Blood Count 2.95 M/mm3 (3.65-5.03); Red Cell Distribution Width 18.5 % (13.2-15.2); White Blood Count 3.3 K/mm3 (4.5-11.0)
[2017-06-03 04:55] LABS: Calcium 6.5 mg/dL (8.4-10.2); Chloride 97.6 mmol/L (98-107); Potassium 3.6 mmol/L (3.6-5.0)
[2017-06-03] MEDS: NEURONTIN PO SCH ×2 (06:18→14:00)
[2017-06-03] MEDS: NOVOLOG SUB-Q SCH ×2 (08:58→11:30)
[2017-06-03] MEDS: RENVELA PO SCH ×2 (09:31→12:00)
--- NOTE | 2017-06-03 09:51 | XRay Report ---
AP CHEST: HISTORY: Respiratory failure No recent comparison. Previous CABG changes and pacemaker placement are noted. Mild cardiomegaly, moderate pulmonary venous congestion and small bilateral pleural effusions are identified. No consolidation or pneumothorax. The bony structures are demineralized but grossly intact. Chronic dislocation of the left shoulder is suspected. IMPRESSION: CHF.
[2017-06-03] MEDS: PROTONIX PO SCH (10:00)
[2017-06-03] MEDS: ZOLOFT PO SCH (10:00)
[2017-06-03] MEDS: COREG PO SCH (10:00)
[2017-06-03] MEDS: PLAVIX PO SCH (10:00)
[2017-06-03] MEDS: SODIUM BICARBONATE PO SCH (10:00)
[2017-06-03] MEDS: FOLVITE PO SCH (10:00)
--- NOTE | 2017-06-03 10:10 | Progress Note ---
Assessment and Plan Impression: * esrd * htn * chronic pain * anemia in esrd * Plan: * HD q MWF * epoen with hd * renal diet * strict i/os * uf with hd as tolerated * dc home from renal standpoint Subjective Date of service: 06/03/17 Principal diagnosis: esrd Interval history: resting in bed today Objective - Exam Narrative Exam: General appearance: Present: mild distress, cachectic - EENT Eyes: Present: PERRL ENT: hearing intact, clear oral mucosa - Neck Neck: Present: supple, normal ROM - Respiratory Respiratory: bilateral: diminished - Cardiovascular Heart Sounds: Present: S1 & S2. Absent: rub, click Peripheral Pulses: within normal limits - Abdominal General gastrointestinal: Present: soft, non-tender, non-distended, normal bowel sounds Female genitourinary: Present: normal - Integumentary Integumentary: Present: clear, dry, decreased turgor - Musculoskeletal Musculoskeletal: generalized weakness - Psychiatric Psychiatric: appropriate mood/affect, intact judgment & insight - Neurologic Neurologic: CNII-XII intact, moves all extremities - Vital Signs Vital signs: Vital Signs - 12hr 06/02/17 06/03/17 22:48 07:45 Temperature 98.6 F 98.4 F Pulse Rate 66 60 Respiratory 18 18 Rate Blood Pressure 132/44 108/41 O2 Sat by Pulse 95 98 Oximetry - Lab 06/03/17 04:17 06/03/17 04:17 Most recent lab results Calcium 6.5 mg/dL (8.4-10.2) L 06/03/17 04:17
[2017-06-03] MEDS ORDERED: NACL 0.9 (PRIMING MACHINE ONLY DIALYSIS) MC ONE (12:00)
--- NOTE | 2017-06-03 14:41 | Progress Note ---
Assessment and Plan Assessment and plan: 76 YO Female with Chronic Respiratory Failure on Home oxygen,HTN, [place], PVD, ESRD on HD, DM, CHF, MR, TR, CAD S/P CABG admitted directly at the request of Dr. Davies for dialysis, following cysto with stent exchange and complain of shortenss of breath Pt seen and evaluated upon arrival to floor postoperatively. Pt acknowledges shortness of breath, and not feeling well for the past 2 days. Pt denies fever, chills, CP, Palpitations, NVD, Syncope, productive cough, or recent ill contacts. Distal ulnar fracture on the right * Mechanism of injury, unknown to me, she denies any fall. Pending Ortho input * pain control ESRD * Nephrology following. * S/P cysto, stent exchange HTN * Continue current medications ANEMIA OF CHRONIC DISEASE * Stable ACUTE ON CHRONIC RESPIRATORY FAILURE * Continue supplemental oxygen, Pulmonary toilet, Nebs prn, check chest xray. PVD/CAD * Coreg, plavix, asa * S/P Right AKA DM * Stable, continue current accu checks, insulin. DVT/GI Plan discussed with patient, if no intervention will plan on discharge LATER TODAY History Interval history: Patient seen and examined in no acute distress. still with some pain and swelling right upper ext Hospitalist Physical - Physical exam Narrative exam: VITAL SIGNS: Reviewed. GENERAL: The patient is cachetics, in mild distress, Vital signs as documented. HEAD: No signs of head trauma. EYES: Pupils are equal. Extraocular motions intact. EARS: Hearing grossly intact. MOUTH: Oropharynx is normal. NECK: No adenopathy, no JVD. CHEST: Chest with clear breath sounds bilaterally. No wheezes, rales, or rhonchi. CARDIAC: Regular rate and rhythm. S1 and S2, without murmurs, gallops, or rubs. VASCULAR: Trace Edema. Peripheral pulses normal and equal in all extremities. ABDOMEN: Soft, without detectable tenderness. No sign of distention. No rebound or guarding, and no masses palpated. Bowel Sounds normal. MUSCULOSKELETAL: LROM right upper ext, mild swelling persist, Right AKA, Extremities without clubbing, cyanosis. Trace edema. NEUROLOGIC EXAM: Alert and oriented x 3. No focal sensory or strength deficits. Speech normal. Follows commands. PSYCHIATRIC: Mood normal. SKIN: No rash or lesions. - Constitutional Vitals: Temp Pulse Resp BP Pulse Ox 99.5 F 68 18 122/62 98 06/03/17 10:46 06/03/17 13:00 06/03/17 10:46 06/03/17 13:00 06/03/17 07:45 General appearance: Present: mild distress, cachectic Results - Labs CBC & Chem 7: 06/03/17 04:17 10 04:17 Labs: Laboratory Last Values WBC 3.3 K/mm3 (4.5-11.0) L 06/03/17 04:17 RBC 2.95 M/mm3 (3.65-5.03) L 06/03/17 04:17 Hgb 9.4 gm/dl (10.1-14.3) L 06/03/17 04:17 Hct 30.3 % (30.3-42.9) D 06/03/17 04:17 MCV 103 fl (79-97) H 06/03/17 04:17 MCH 32 pg (28-32) 06/03/17 04:17 MCHC 31 % (30-34) 06/03/17 04:17 RDW 18.5 % (13.2-15.2) H 06/03/17 04:17 Plt Count 116 K/mm3 (140-440) L 06/03/17 04:17 Baso % (Auto) Foundation Relations Manager 06/01/17 09:15 Add Manual Diff Complete 06/01/17 09:15 Total Counted 100 06/01/17 09:15 Seg Neuts % (Manual) 81.0 % (40.0-70.0) H 06/01/17 09:15 Band Neutrophils % 3.0 % 06/01/17 09:15 Lymphocytes % (Manual) 7.0 % (13.4-35.0) L 06/01/17 09:15 Reactive Lymphs % (Man) 0 % 06/01/17 09:15 Monocytes % (Manual) 7.0 % (0.0-7.3) 06/01/17 09:15 Eosinophils % (Manual) 1.0 % (0.0-4.3) 06/01/17 09:15 Basophils % (Manual) 1.0 % (0.0-1.8) 06/01/17 09:15 Metamyelocytes % 0 % 06/01/17 09:15 Myelocytes % 0 % 06/01/17 09:15 Promyelocytes % 0 % 06/01/17 09:15 Blast Cells % 0 % 06/01/17 09:15 Nucleated RBC % Not Reportable 06/01/17 09:15 Seg Neutrophils # Man 3.9 K/mm3 (1.8-7.7) 06/01/17 09:15 Band Neutrophils # 0.1 K/mm3 06/01/17 09:15 Lymphocytes # (Manual) 0.3 K/mm3 (1.2-5.4) L 06/01/17 09:15 Abs React Lymphs (Man) 0.0 K/mm3 06/01/17 09:15 Monocytes # (Manual) 0.3 K/mm3 (0.0-0.8) 06/01/17 09:15 Eosinophils # (Manual) 0.0 K/mm3 (0.0-0.4) 06/01/17 09:15 Basophils # (Manual) 0.0 K/mm3 (0.0-0.1) 06/01/17 09:15 Metamyelocytes # 0.0 K/mm3 06/01/17 09:15 Myelocytes # 0.0 K/mm3 06/01/17 09:15 Promyelocytes # 0.0 K/mm3 06/01/17 09:15 Blast Cells # 0.0 K/mm3 06/01/17 09:15 WBC Morphology Not Reportable 06/01/17 09:15 Hypersegmented Neuts Not Reportable 06/01/17 09:15 Hyposegmented Neuts Not Reportable 06/01/17 09:15 Hypogranular Neuts Not Reportable 06/01/17 09:15 Smudge Cells Not Reportable 06/01/17 09:15 Toxic Granulation Not Reportable 06/01/17 09:15 Toxic Vacuolation Not Reportable 06/01/17 09:15 Dohle Bodies Not Reportable 06/01/17 09:15 Pelger-Huet Anomaly Not Reportable 06/01/17 09:15 Ludin Rods Not Reportable 06/01/17 09:15 Platelet Estimate Not Reportable 06/01/17 09:15 Clumped Platelets Not Reportable 06/01/17 09:15 Plt Clumps, EDTA Not Reportable 06/01/17 09:15 Large Platelets Not Reportable 06/01/17 09:15 Giant Platelets Not Reportable 06/01/17 09:15 Platelet Satelliting Not Reportable 06/01/17 09:15 Plt Morphology Comment Not Reportable 06/01/17 09:15 RBC Morphology Not Reportable 06/01/17 09:15 Dimorphic RBCs Not Reportable 06/01/17 09:15 Polychromasia Not Reportable 06/01/17 09:15 Hypochromasia Not Reportable 06/01/17 09:15 Poikilocytosis Not Reportable 06/01/17 09:15 Anisocytosis Few 06/01/17 09:15 Microcytosis Not Reportable 06/01/17 09:15 Macrocytosis Not Reportable 06/01/17 09:15 Spherocytes Not Reportable 06/01/17 09:15 Pappenheimer Bodies Not Reportable 06/01/17 09:15 Sickle Cells Not Reportable 06/01/17 09:15 Target Cells Not Reportable 06/01/17 09:15 Tear Drop Cells Not Reportable 06/01/17 09:15 Ovalocytes Not Reportable 06/01/17 09:15 Helmet Cells Not Reportable 06/01/17 09:15 Aguir[place] Bodies Not Reportable 06/01/17 09:15 [place] Rings Not Reportable 06/01/17 09:15 [place] Cells Not Reportable 06/01/17 09:15 Bite Cells Not Reportable 06/01/17 09:15 Crenated Cell Not Reportable 06/01/17 09:15 Elliptocytes Not Reportable 06/01/17 09:15 Acanthocytes (Spur) Not Reportable 06/01/17 09:15 Rouleaux Not Reportable 06/01/17 09:15 Hemoglobin C Crystals Not Reportable 06/01/17 09:15 Schistocytes Not Reportable 06/01/17 09:15 Malaria parasites Not Reportable 06/01/17 09:15 Luciano Bodies Not Reportable 06/01/17 09:15 Hem Pathologist Commnt No 06/01/17 09:15 Sodium 135 mmol/L (137-145) L 06/03/17 04:17 Potassium 3.6 mmol/L (3.6-5.0) 06/03/17 04:17 Chloride 97.6 mmol/L (98-107) L 06/03/17 04:17 Carbon Dioxide 28 mmol/L (22-30) 06/03/17 04:17 Anion Gap 13 mmol/L 06/03/17 04:17 BUN 27 mg/dL (7-17) H 06/03/17 04:17 Creatinine 3.9 mg/dL (0.7-1.2) H 06/03/17 04:17 Estimated GFR 11 ml/min 06/03/17 04:17 BUN/Creatinine Ratio 7 % 06/03/17 04:17 Glucose 107 mg/dL (65-100) H 06/03/17 04:17 POC Glucose 101 (70-105) 06/03/17 07:49 Calcium 6.5 mg/dL (8.4-10.2) L 06/03/17 04:17
--- NOTE | 2017-06-03 14:47 | Discharge Summary ---
Providers - Providers Date of Admission: 06/01/17 11:37 Attending physician: BHAVIN BARNES MD 06/01/17 10:44 Consult to Physician [CONS] Urgent Consulting Provider: ASHLYN MO Reason For Exam: dialysis Place consult to:: Dr. Cristal Mo Notified:: yes 06/02/17 06:30 Consult to Physician [CONS] Routine Consulting Provider: MEGAN PRESLEY Reason For Exam: FX RIGHT DISTAL ULNA Place consult to:: DR. PRESLEY Notified:: DR. PRESLEY Phone number called:: JOSÉ MIGUEL If yes, spoke with:: Y Time called:: 07:43 Comment:: CONSULT COMPLETED - FANTA 06/02/17 10:56 Physical Therapy Evaluation and Treat [CONS] Routine Comment: Reason For Exam: EVALUATION 06/02/17 10:58 Occupational Therapy Evaluate and Treat [CONS] Routine Comment: Reason For Exam: EVALUAION Primary care physician: KYRA AYALA Hospitalization Reason for admission: sortness of breath Condition: Stable Hospital course: 76 YO Female with Chronic Respiratory Failure on Home oxygen,HTN, [place], PVD, ESRD on HD, DM, CHF, MR, TR, CAD S/P CABG admitted directly at the request of Dr. Davies for dialysis, following cysto with stent exchange and complain of shortenss of breath Pt seen and evaluated upon arrival to floor postoperatively. Pt acknowledges shortness of breath, and not feeling well for the past 2 days. Pt denies fever, chills, CP, Palpitations, NVD, Syncope, productive cough, or recent ill contacts. Distal ulnar fracture on the right * Mechanism of injury, unknown to me, she denies any fall. Discussed with ortho , he recommended wrist brace after evaluating the patient and ok for discharge. Pt to follow with PCP * pain control ESRD * Patient continued with dialysis while in house. Will follow with Urology outpatient * S/P cysto, stent exchange HTN * Continue current medications ANEMIA OF CHRONIC DISEASE * Stable ACUTE ON CHRONIC RESPIRATORY FAILURE * chest xray showed vascular congestion, patient improved following dialysis. PVD/CAD * Coreg, plavix, asa * S/P Right AKA DM * Stable, continue current accu checks, insulin. Disposition: DC/[place]-06 HOME UNDER HOME [facility] Time spent for discharge: 35 MINS Core Measure Documentation - Palliative Care Palliative Care/ Comfort Measures: Not Applicable - Core Measures Any of the following diagnoses?: none - VTE Discharge Requirements Deep Vein Thrombosis/Pulmonary Embolism Present on Admission: No Exam - Physical Exam Narrative exam: VITAL SIGNS: Reviewed. GENERAL: The patient is cachetics, in mild distress, Vital signs as documented. HEAD: No signs of head trauma. EYES: Pupils are equal. Extraocular motions intact. EARS: Hearing grossly intact. MOUTH: Oropharynx is normal. NECK: No adenopathy, no JVD. CHEST: Chest with clear breath sounds bilaterally. No wheezes, rales, or rhonchi. CARDIAC: Regular rate and rhythm. S1 and S2, without murmurs, gallops, or rubs. VASCULAR: Trace Edema. Peripheral pulses normal and equal in all extremities. ABDOMEN: Soft, without detectable tenderness. No sign of distention. No rebound or guarding, and no masses palpated. Bowel Sounds normal. MUSCULOSKELETAL: LROM right upper ext, mild swelling persist, Right AKA, Extremities without clubbing, cyanosis. Trace edema. NEUROLOGIC EXAM: Alert and oriented x 3. No focal sensory or strength deficits. Speech normal. Follows commands. PSYCHIATRIC: Mood normal. SKIN: No rash or lesions. - Constitutional Vitals: Temp Pulse Resp BP Pulse Ox 99.5 F 68 18 122/62 98 06/03/17 10:46 06/03/17 13:00 06/03/17 10:46 06/03/17 13:00 06/03/17 07:45 Plan Activity: advance as tolerated, fall precautions Diet: renal Special Instructions: record daily weights, record daily BP diary, physical therapy, occupational therapy Follow up with: PRIMARY CARE, [Referring] - 7 Days HARPER DAVIES MD [Staff Physician] - 7 Days ASHLYN MO MD [Staff Physician] - 7 Days Prescriptions: Gabapentin [Neurontin] 800 mg PO Q8HR #14 capsule HYDROcodone/APAP 5-325 [Ider 5-325 mg TAB] 2 each PO Q6H PRN #14 tablet PRN Reason: Pain, Moderate (4-6)
[2017-06-03 17:11] VITALS: BP 118/41
[2017-06-08] MEDS ORDERED: VITAMIN D2 PO SCH (10:00)
== END 2017-06-03 19:55 | disposition home health service (06) | DRG 693 ==
LOC: OR 06:57 → 3B-SURG 11:37
PROVIDERS: ADMIT Internal Medicine; ATTEND Internal Medicine
PROC: 0TPD8DZ Removal of Intraluminal Device from Urethra, Via Natural or Artificial Opening Endoscopic (ICD-10-PCS; principal; 2017-06-01)
PROC: 0T7D8DZ Dilation of Urethra with Intraluminal Device, Via Natural or Artificial Opening Endoscopic (ICD-10-PCS; 2017-06-01)
PROC: 5A1D70Z Performance of Urinary Filtration, Intermittent, Less than 6 Hours Per Day (ICD-10-PCS; 2017-06-01)
DX: N13.30 Unspecified hydronephrosis (principal); J96.21 Acute and chronic respiratory failure with hypoxia; I13.2 Hypertensive heart and chronic kidney disease with heart failure and with stage 5 chronic kidney disease, or end stage renal disease; S52.601A Unspecified fracture of lower end of right ulna, initial encounter for closed fracture; N18.6 End stage renal disease; D63.1 Anemia in chronic kidney disease; E11.51 Type 2 diabetes mellitus with diabetic peripheral angiopathy without gangrene; X58.XXXA Exposure to other specified factors, initial encounter; I50.9 Heart failure, unspecified; E11.22 Type 2 diabetes mellitus with diabetic chronic kidney disease; I25.10 Atherosclerotic heart disease of native coronary artery without angina pectoris; Z88.6 Allergy status to analgesic agent; Z88.1 Allergy status to other antibiotic agents; Z99.81 Dependence on supplemental oxygen; I25.2 Old myocardial infarction; Z99.2 Dependence on renal dialysis; Z95.1 Presence of aortocoronary bypass graft; Z82.49 Family history of ischemic heart disease and other diseases of the circulatory system; Z79.4 Long term (current) use of insulin; Z79.02 Long term (current) use of antithrombotics/antiplatelets; Z79.899 Other long term (current) drug therapy; Y93.89 Activity, other specified; Y92.89 Other specified places as the place of occurrence of the external cause; Y99.8 Other external cause status; Z89.611 Acquired absence of right leg above knee
CPT/HCPCS: 36415; 71010; 74420; 80048; 82962; 85007; 85025; 85027; A4217; C1758; C1769; C2617; G8988-GO; G8989-GO; J1170; J1815; J2704; J7030; Q9967

== ENCOUNTER 2017-07-31 13:46 | Inpatient (IN) | payer MEDICARE ==
--- NOTE | 2017-07-31 15:37 | Consultation ---
History of Present Illness - Reason for Consult Consult date: 07/31/17 Clotted AV access - History of Present Illness 76 year old female with Chronic Respiratory Failure on Home oxygen, HTN, [place], PVD , ESRD on HD (M,W,F), DM, CHF, MR, TR, CAD S/P CABG, Chronic Pain, right kidney stent who was recently admitted to the hospital and discharged back to [facility] who presents with a thrombosed left upper extremity AV access. She was assessed at bedside with decreased mental status. Vital signs were stable. She had an edematous left upper extremity. Her last dialysis was Thursday. She last had something to eat this morning. Past History Past Medical History: acute [place], arthritis, CAD, COPD, ESRD, hypertension Past Surgical History: cholecystectomy, CABG, Other (pacemaker, L AVG, L AKA) Social history: , other (lives in SNF) Family history: CAD, hypertension Medications and Allergies Allergies Allergy/AdvReac Type Severity Reaction Status Date / Time codeine AdvReac Nausea Verified 06/26/14 17:48 Sulfa (Sulfonamide AdvReac Unknown Verified 06/26/14 17:48 Antibiotics) Home Medications Medication Instructions Recorded Confirmed Last Taken Type Folic Acid [Folvite] 1 mg PO QDAY 06/23/15 07/13/17 06/10/17 History Sertraline [Zoloft] 50 mg PO QDAY 06/23/15 07/13/17 06/10/17 History Sevelamer Carbonate [Renvela] 2 tab PO TIDWM 06/23/15 07/13/17 06/10/17 History Sodium Bicarbonate 650 mg PO BID 06/23/15 07/13/17 06/10/17 History [place]-3S/Dha/Epa/Fish Oil [Fish 1 each PO DAILY 11/17/15 07/13/17 06/10/17 History Oil 1,200 mg Softgel] Acetaminophen [Tylenol Arthritis] 650 mg PO Q8H PRN 05/28/16 07/13/17 1 Week Ago History ~07/11/16 B Complex 11/Folic/C/Biot/Zinc 1 tab PO DAILY 05/28/16 07/13/17 06/10/17 History [Dialyvite with Zinc Tablet] Lansoprazole [Prevacid] 30 mg PO DAILY 05/28/16 07/13/17 06/10/17 History Ergocalciferol (Vitamin D2) 2,000 unit PO 1XW 07/17/16 07/13/17 1 Day Ago History [Vitamin D2] ~07/17/16 Clopidogrel [Plavix] 75 mg PO QDAY #30 tablet 07/21/16 07/13/17 06/10/17 Rx ALPRAZolam [Xanax TAB] 0.5 mg PO BID 06/10/17 07/13/17 06/10/17 History Docusate Sodium [Colace CAP] 200 mg PO DAILY 06/10/17 07/13/17 06/10/17 History Metoprolol [Lopressor TAB] 12.5 mg PO BID #60 tablet 06/23/17 07/13/17 Unknown Rx Gabapentin [Neurontin] 300 mg PO Q8HR 07/13/17 07/13/17 Unknown History ALBUTEROL NEB's [Proventil 0.083% 2.5 mg IH Q4HRT PRN #30 nebu 07/28/17 Unknown Rx NEBS] Amiodarone [Cordarone 200 MG TAB] 200 mg PO QDAY #60 tablet 07/28/17 Unknown Rx Cefuroxime [Ceftin] 500 mg PO Q24HR #14 tablet 07/28/17 Unknown Rx Midodrine [Proamatine] 5 mg PO 3XW #30 tablet 07/28/17 Unknown Rx Pantoprazole [Protonix TAB] 40 mg PO DAILY #30 tablet 07/28/17 Unknown Rx Warfarin [Coumadin] 1 mg PO DAILY@1700 #30 tablet 07/28/17 Unknown Rx Review of Systems All systems: negative (see HPI) Exam - Constitutional Vitals: Temp Pulse Resp BP Pulse Ox 98.0 F 65 9 L 131/58 100 07/31/17 14:08 07/31/17 14:08 07/31/17 14:08 07/31/17 14:08 07/31/17 14:08 General appearance: Present: other (decreased mental status) - Respiratory Respiratory effort: normal - Extremities Extremities: normal temperature, normal color, abnormal (no thrill in L AVG, palpable left radial pulse and weakly palpale left ulnar pulse) - Psychiatric Psychiatric: cooperative Assessment and Plan 77-year-old female with multiple medical issues with thrombosed left upper extremity AV graft with decreased mental status and no laboratory results who is edematous. Patient's family contacted our office due to thrombosed left upper extremity graft. Due the patient's present state, we will place a temporary femoral hemodialysis catheter for both medication administration, and hemodialysis. Patient on patient's function and improvement, we will tentatively plan for left AV graft percutaneous thrombectomy on Thursday.
--- NOTE | 2017-07-31 15:45 | Emergency Department Report ---
HPI - General Chief Complaint: Medical Clearance Time Seen by Provider: 07/31/17 15:29 - HPI HPI: Room 5 The patient is a 77-year-old female presenting with a chief complaint of left AV fistula dysfunction. The patient has a history of end-stage renal disease and states she normally receives dialysis every Thursday. Patient last received dialysis Thursday (07/29/2017) when she came to the Center today for dialysis for left upper extremity graft was found to be nonfunctioning. Patient was ultimately sent to the ED for evaluation. Vascular surgery, Dr. Figueroa, has already seen the patient and plan on placing a temporary catheter for dialysis and requested patient be admitted to the hospital for further management. He states they plan on doing a thrombectomy likely 08/02/2017. Patient currently denies pain/complaints Location: Left upper extremity graft Duration: [See above] Quality: "Clogged" Severity: Moderate Modifying factors: [see above] Context: [see above] Mode of transportation: [not driving] ED Past Medical Hx - Past Medical History Hx Hypertension: Yes Hx Heart Attack/AMI: Yes (1996) Hx Congestive Heart Failure: Yes Hx Diabetes: Yes Hx Deep Vein Thrombosis: Yes Hx GERD: Yes (GERD) Hx Renal Disease: Yes (M,W,F Dialysis) Hx Arthritis: Yes Hx COPD: Yes - Surgical History Hx Coronary Stent: Yes Hx Open Heart Surgery: Yes (bypass and defribillator) Hx Pacemaker: Yes Hx Internal Defibrillator: Yes Hx Cholecystectomy: Yes Additional Surgical History: Right AKA. Graft/fistula to left arm. - Family History Family history: no significant - Social History Smoking Status: Never Smoker Substance Use Type: None - Medications Home Medications: Home Medications Medication Instructions Recorded Confirmed Last Taken Type Folic Acid [Folvite] 1 mg PO QDAY 06/23/15 07/31/17 06/10/17 History Sertraline [Zoloft] 50 mg PO QDAY 06/23/15 07/31/17 06/10/17 History Sevelamer Carbonate [Renvela] 2 tab PO TIDWM 06/23/15 07/31/17 06/10/17 History Sodium Bicarbonate 650 mg PO BID 06/23/15 07/31/17 06/10/17 History [place]-3S/Dha/Epa/Fish Oil [Fish 1 each PO DAILY 11/17/15 07/31/17 06/10/17 History Oil 1,200 mg Softgel] Acetaminophen [Tylenol Arthritis] 650 mg PO Q8H PRN 05/28/16 07/31/17 1 Week Ago History ~07/11/16 B Complex 11/C/Biot/Zinc 1 tab PO DAILY 05/28/16 07/31/17 06/10/17 History [Dialyvite with Zinc Tablet] Lansoprazole [Prevacid] 30 mg PO DAILY 05/28/16 07/31/17 06/10/17 History Ergocalciferol (Vitamin D2) 2,000 unit PO 1XW 07/17/16 07/31/17 1 Day Ago History [Vitamin D2] ~07/17/16 Clopidogrel [Plavix] 75 mg PO QDAY #30 tablet 07/21/16 07/31/17 06/10/17 Rx ALPRAZolam [Xanax TAB] 0.5 mg PO BID 06/10/17 07/31/17 06/10/17 History Docusate Sodium [Colace CAP] 200 mg PO DAILY 06/10/17 07/31/17 06/10/17 History Metoprolol [Lopressor TAB] 12.5 mg PO BID #60 tablet 06/23/17 07/31/17 Unknown Rx Gabapentin [Neurontin] 300 mg PO Q8HR 07/13/17 07/31/17 Unknown History ALBUTEROL NEB's [Proventil 0.083% 2.5 mg IH Q4HRT PRN #30 nebu 07/28/17 Unknown Rx NEBS] Amiodarone [Cordarone 200 MG TAB] 200 mg PO QDAY #60 tablet 07/28/17 07/31/17 Unknown Rx Cefuroxime [Ceftin] 500 mg PO Q24HR #14 tablet 07/28/17 07/31/17 Unknown Rx Midodrine [Proamatine] 5 mg PO 3XW #30 tablet 07/28/17 07/31/17 Unknown Rx Pantoprazole [Protonix TAB] 40 mg PO DAILY #30 tablet 07/28/17 07/31/17 Unknown Rx Warfarin [Coumadin] 1 mg PO DAILY@1700 #30 tablet 07/28/17 07/31/17 Unknown Rx ED Review of Systems ROS: Stated complaint: DIALYSIS/PORT ISSUE Other details as noted in HPI Eyes: denies: eye pain ENT: other (hard of hearing) Cardiovascular: denies: chest pain Gastrointestinal: denies: abdominal pain Genitourinary: denies: dysuria Musculoskeletal: denies: back pain Neurological: denies: headache Physical Exam - Physical Exam Vital Signs: Vital Signs 07/31/17 14:08 Temperature 98.0 F Pulse Rate 65 Respiratory 9 L Rate Blood Pressure 131/58 [Left] O2 Sat by Pulse 100 Oximetry Physical Exam: GENERAL: The patient is well-developed well-nourished female lying on stretcher not appearing to be in acute distress. [] HEENT: Normocephalic. Atraumatic. NECK: Trachea midline CHEST/LUNGS: Clear to auscultation. There is no respiratory distress noted. HEART/CARDIOVASCULAR: Regular. There is no tachycardia. There is no gallop rub or murmur. There is no thrill palpated in the left upper extremity fistula ABDOMEN: Abdomen is soft, nontender. Patient has normal bowel sounds. There is no abdominal distention. SKIN: There is no rash. There is no edema. There is no diaphoresis. NEURO: The patient is awake and alert. The patient is cooperative. The patient has normal speech MUSCULOSKELETAL: There is no evidence of acute injury. ED Course Vital Signs 07/31/17 14:08 Temperature 98.0 F Pulse Rate 65 Respiratory 9 L Rate Blood Pressure 131/58 [Left] O2 Sat by Pulse 100 Oximetry ED Medical Decision Making - Lab Data Result diagrams: 07/31/17 17:15 07/31/17 17:15 Laboratory Tests 07/31/17 07/31/17 07/31/17 17:15 17:15 17:15 WBC 10.9 RBC 3.12 L Hgb 9.8 L Hct 31.4 MCV 100 H MCH 31 MCHC 31 RDW 20.2 H Plt Count 151 Lymph % (Auto) 6.6 L [place] % (Auto) 5.0 Eos % (Auto) 0.2 Baso % (Auto) 0.8 Lymph # 0.7 L [place] # 0.5 Eos # 0.0 Baso # 0.1 Seg Neutrophils % 87.4 H Seg Neutrophils # 9.6 H PT 16.2 H INR 1.23 H APTT 44.8 H Sodium 135 L Potassium 3.6 Chloride 97.3 L Carbon Dioxide 27 Anion Gap 14 BUN 11 Creatinine 1.8 H Estimated GFR 27 BUN/Creatinine Ratio 6 Glucose 115 H Calcium 7.3 L - Differential Diagnosis end-stage renal disease Critical care attestation.: If time is entered above; I have spent that time in minutes in the direct care of this critically ill patient, excluding procedure time. ED Disposition Clinical Impression: End-stage renal disease on hemodialysis, AV graft thrombosis Disposition: OP ADMIT IP TO THIS HOSP Is pt being admited?: Yes Does the pt Need Aspirin: No Condition: Fair Referrals: PRIMARY CARE, [Primary Care Provider] - 3-5 Days Time of Disposition: 15:47 (hospitalist paged)
--- NOTE | 2017-07-31 15:46 | Operative Report ---
Operative Report Operative Report: EXAM: 1. Ultrasound-guided puncture of the left common femoral vein 2. Fluoroscopic-guided placement of a left common femoral vein triple lumen nontunneled noncuffed hemodialysis catheter. DATE: 07/31/17 INDICATION: Atrial disease with thrombosed left upper extremity AV graft requiring hemodialysis. MEDICATIONS: Please see nursing report for full details. DEVICES: 30 cm triple-lumen hemodialysis catheter [employer] SUPERVISOR: NARCISO TAMAYO MD CONTRAST: None PROCEDURE: The risks, benefits, and alternatives were discussed and informed consent was obtained. The patient was transported to the angiography suite in satisfactory/ stable condition and was transported onto the angiography table. The patient's left common femoral vein was assessed with ultrasound and determined to be patent prior to procedure. The patient was prepped and draped in a sterile fashion. The puncture site was anesthetized. The left common femoral vein was patent on ultrasound. Under sonographic guidance, the left common femoral vein was punctured with a 21-gauge micropuncture needle and a 0.018 inch wire was advanced through the needle. Needle was exchanged for transitional dilator. The inner dilator and wire was removed and a 0.035 inch wire was advanced through the transitional dilator into the inferior vena cava. Over the 0.035 inch wire, serial dilatation was performed. The catheter was advanced over the wire and positioned centrally under fluoroscopic guidance. 2-0 silk suture was used to secure the catheter. The catheter was charged with heparin 1000 units per mL of space in the dialysis lumens and heparinized saline in the central lumen. Sterile dressing applied with Biopatch. The patient was transferred from the angiography suite back to the floor in stable condition. FINDINGS: 1. Excellent flow was obtained through the dialysis catheter with 20 mL syringes. 2. The catheter tip is in the inferior vena cava. IMPRESSION: 1. Successful sonographically and fluoroscopically guided placement of a left common femoral vein triple lumen nontunneled noncuffed hemodialysis catheter.
[2017-07-31] MEDS ORDERED: HEPARIN/NS 5000 UNIT/500ML(CATH LAB) 500 ML IR ONE (15:47)
[2017-07-31] MEDS ORDERED: XYLOCAINE 2% INFILTRATI ONE (15:47)
[2017-07-31] MEDS: HEPARIN 10,000 UNITS/10 ML ONE ×4 (16:03→16:09)
[2017-07-31 17:31] LABS: Basophils % (Auto) 0.8 % (0.0-1.8); Eosinophils % (Auto) 0.2 % (0.0-4.3); Hematocrit 31.4 % (30.3-42.9); Hemoglobin 9.8 gm/dl (10.1-14.3); Mean Corpuscular HGB Conc 31 % (30-34); Mean Corpuscular Hemoglobin 31 pg (28-32); Mean Corpuscular Volume 100 fl (79-97); Platelet Count 151 K/mm3 (140-440); Red Blood Count 3.12 M/mm3 (3.65-5.03); White Blood Count 10.9 K/mm3 (4.5-11.0)
[2017-07-31 17:35] LABS: Red Cell Distribution Width 20.2 % (13.2-15.2)
[2017-07-31 17:42] LABS: Calcium 7.3 mg/dL (8.4-10.2); Chloride 97.3 mmol/L (98-107); Potassium 3.6 mmol/L (3.6-5.0)
[2017-07-31 17:52] LABS: INR 1.23 (0.87-1.13)
[2017-07-31 17:53] LABS: Partial Thromboplastin Time 44.8 Sec. (24.2-36.6)
[2017-07-31] MEDS ORDERED: PROVENTIL IH PRN (22:30)
[2017-07-31] MEDS ORDERED: NON-FORMULARY (Acetaminophen [Tylenol Arthritis] 650 MG) PO PRN (22:30)
--- NOTE | 2017-07-31 22:30 | History and Physical Report ---
History of Present Illness Date of examination: 07/31/17 Date of admission: 07/31/17 Chief complaint: CC Nonfunctiolning AV graft [place] History of present illness: [place]: 77 y/0 female with pmH significant for ESRD HTN DM CHF Arrhythmias and DVT sent from [facility] for non functioning AV graft in [place].Patient had HD on thu07/29/17.No Sob present.Patient being taken to label cutter for vascath placement and possible declotting of AVG in [facility].No chest pain.No recent travel. Vascular surgery consulted. Past Medical History Hypertension: Yes Heart Attack/AMI: Yes (1996) Congestive Heart Failure Diabetes Deep Vein Thrombosis GERD Renal Disease: Yes (M,W,F Dialysis) Arthritis COPD Surgical History Hx Coronary Stent: Yes Hx Open Heart Surgery: Yes (bypass and defribillator) Hx Pacemaker: Yes Hx Internal Defibrillator: Yes Hx Cholecystectomy: Yes Additional Surgical History: Right AKA. Graft/fistula to left arm. Family History Family history: no significant - Social History Smoking Status: Never Smoker Substance Use Type: None Fam Hx HTN - Medications Home Medications: Home Medications Medication Instructions Recorded Confirmed Last Taken Type Folic Acid [Folvite] 1 mg PO QDAY 06/23/15 07/31/17 06/10/17 History Sertraline [Zoloft] 50 mg PO QDAY 06/23/15 07/31/17 06/10/17 History Sevelamer Carbonate [Renvela] 2 tab PO TIDWM 06/23/15 07/31/17 06/10/17 History Sodium Bicarbonate 650 mg PO BID 06/23/15 07/31/17 06/10/17 History [place]-3S/Dha/Epa/Fish Oil [Fish 1 each PO DAILY 11/17/15 07/31/17 06/10/17 History Oil 1,200 mg Softgel] Acetaminophen [Tylenol Arthritis] 650 mg PO Q8H PRN 05/28/16 07/31/17 1 Week Ago History ~07/11/16 B Complex 11/Folic/C/Biot/Zinc 1 tab PO DAILY 05/28/16 07/31/17 06/10/17 History [Dialyvite with Zinc Tablet] Lansoprazole [Prevacid] 30 mg PO DAILY 05/28/16 07/31/17 06/10/17 History Ergocalciferol (Vitamin D2) 2,000 unit PO 1XW 07/17/16 07/31/17 1 Day Ago History [Vitamin D2] ~07/17/16 Clopidogrel [Plavix] 75 mg PO QDAY #30 tablet 07/21/16 07/31/17 06/10/17 Rx ALPRAZolam [Xanax TAB] 0.5 mg PO BID 06/10/17 07/31/17 06/10/17 History Docusate Sodium [Colace CAP] 200 mg PO DAILY 06/10/17 07/31/17 06/10/17 History Metoprolol [Lopressor TAB] 12.5 mg PO BID #60 tablet 06/23/17 07/31/17 Unknown Rx Gabapentin [Neurontin] 300 mg PO Q8HR 07/13/17 07/31/17 Unknown History ALBUTEROL NEB's [Proventil 0.083% 2.5 mg IH Q4HRT PRN #30 nebu 07/28/17 Unknown Rx NEBS] Amiodarone [Cordarone 200 MG TAB] 200 mg PO QDAY #60 tablet 07/28/17 07/31/17 Unknown Rx Cefuroxime [Ceftin] 500 mg PO Q24HR #14 tablet 07/28/17 07/31/17 Unknown Rx Midodrine [Proamatine] 5 mg PO 3XW #30 tablet 07/28/17 07/31/17 Unknown Rx Pantoprazole [Protonix TAB] 40 mg PO DAILY #30 tablet 07/28/17 07/31/17 Unknown Rx Warfarin [Coumadin] 1 mg PO DAILY@1700 #30 tablet 07/28/17 07/31/17 Unknown Rx Review of Systems Stated complaint: DIALYSIS/PORT ISSUE Other details as noted in HPI Eyes: denies: eye pain ENT: other (hard of hearing) Cardiovascular: denies: chest pain Gastrointestinal: denies: abdominal pain Genitourinary: denies: dysuria Musculoskeletal: denies: back pain Neurological: denies: headache Past History Past Medical History: acute PR, arthritis, CAD, COPD, ESRD, hypertension Past Surgical History: cholecystectomy, CABG, Other (pacemaker, L AVG, L AKA) Social history: , other (lives in SNF) Family history: CAD, hypertension Medications and Allergies Allergies Allergy/AdvReac Type Severity Reaction Status Date / Time codeine AdvReac Nausea Verified 06/26/14 17:48 Sulfa (Sulfonamide AdvReac Unknown Verified 06/26/14 17:48 Antibiotics) Home Medications Medication Instructions Recorded Confirmed Last Taken Type Folic Acid [Folvite] 1 mg PO QDAY 06/23/15 07/31/17 06/10/17 History Sertraline [Zoloft] 50 mg PO QDAY 06/23/15 07/31/17 06/10/17 History Sevelamer Carbonate [Renvela] 2 tab PO TIDWM 06/23/15 07/31/17 06/10/17 History Sodium Bicarbonate 650 mg PO BID 06/23/15 07/31/17 06/10/17 History [place]-3S/Dha/Epa/Fish Oil [Fish 1 each PO DAILY 11/17/15 07/31/17 06/10/17 History Oil 1,200 mg Softgel] Acetaminophen [Tylenol Arthritis] 650 mg PO Q8H PRN 05/28/16 07/31/17 1 Week Ago History ~07/11/16 B Complex 11/Folic/C/Biot/Zinc 1 tab PO DAILY 05/28/16 07/31/17 06/10/17 History [Dialyvite with Zinc Tablet] Lansoprazole [Prevacid] 30 mg PO DAILY 05/28/16 07/31/17 06/10/17 History Ergocalciferol (Vitamin D2) 2,000 unit PO 1XW 07/17/16 07/31/17 1 Day Ago History [Vitamin D2] ~07/17/16 Clopidogrel [Plavix] 75 mg PO QDAY #30 tablet 07/21/16 07/31/17 06/10/17 Rx ALPRAZolam [Xanax TAB] 0.5 mg PO BID 06/10/17 07/31/17 06/10/17 History Docusate Sodium [Colace CAP] 200 mg PO DAILY 06/10/17 07/31/17 06/10/17 History Metoprolol [Lopressor TAB] 12.5 mg PO BID #60 tablet 06/23/17 07/31/17 Unknown Rx Gabapentin [Neurontin] 300 mg PO Q8HR 07/13/17 07/31/17 Unknown History ALBUTEROL NEB's [Proventil 0.083% 2.5 mg IH Q4HRT PRN #30 nebu 07/28/17 Unknown Rx NEBS] Amiodarone [Cordarone 200 MG TAB] 200 mg PO QDAY #60 tablet 07/28/17 07/31/17 Unknown Rx Cefuroxime [Ceftin] 500 mg PO Q24HR #14 tablet 07/28/17 07/31/17 Unknown Rx Midodrine [Proamatine] 5 mg PO 3XW #30 tablet 07/28/17 07/31/17 Unknown Rx Pantoprazole [Protonix TAB] 40 mg PO DAILY #30 tablet 07/28/17 07/31/17 Unknown Rx Warfarin [Coumadin] 1 mg PO DAILY@1700 #30 tablet 07/28/17 07/31/17 Unknown Rx Exam - Constitutional Vitals: Temp Pulse Resp BP Pulse Ox 98.2 F 75 14 117/67 100 07/31/17 19:50 07/31/17 19:50 07/31/17 19:50 07/31/17 19:50 07/31/17 19:50 General appearance: Present: no acute distress, well-nourished - EENT Eyes: Present: PERRL ENT: hearing intact, clear oral mucosa - Neck Neck: Present: supple, normal ROM - Respiratory Respiratory effort: normal Respiratory: bilateral: CTA - Cardiovascular Heart rate: 76 Rhythm: regular Heart Sounds: Present: S1 & S2. Absent: rub, click - Extremities Extremities: no ischemia, pulses intact, pulses symmetrical, No edema Peripheral Pulses: within normal limits - Abdominal General gastrointestinal: Present: soft, non-tender, non-distended, normal bowel sounds Female genitourinary: Present: normal - Integumentary Integumentary: Present: clear, warm, dry - Musculoskeletal Musculoskeletal: gait normal, strength equal bilaterally - Psychiatric Psychiatric: appropriate mood/affect, intact judgment & insight - Neurologic Neurologic: CNII-XII intact, moves all extremities - Allied Health Allied health notes reviewed: nursing, case management Results - Labs CBC & Chem 7: 08/01/17 04:38 08/01/17 04:38 Labs: Laboratory Last Values WBC 10.9 K/mm3 (4.5-11.0) 07/31/17 17:15 RBC 3.12 M/mm3 (3.65-5.03) L 07/31/17 17:15 Hgb 9.8 gm/dl (10.1-14.3) L 07/31/17 17:15 Hct 31.4 % (30.3-42.9) 07/31/17 17:15 MCV 100 fl (79-97) H 07/31/17 17:15 MCH 31 pg (28-32) 07/31/17 17:15 MCHC 31 % (30-34) 07/31/17 17:15 RDW 20.2 % (13.2-15.2) H 07/31/17 17:15 Plt Count 151 K/mm3 (140-440) 07/31/17 17:15 Lymph % (Auto) 6.6 % (13.4-35.0) L 07/31/17 17:15 [place] % (Auto) 5.0 % (0.0-7.3) 07/31/17 17:15 Eos % (Auto) 0.2 % (0.0-4.3) 07/31/17 17:15 Baso % (Auto) 0.8 % (0.0-1.8) 07/31/17 17:15 Lymph # 0.7 K/mm3 (1.2-5.4) L 07/31/17 17:15 [place] # 0.5 K/mm3 (0.0-0.8) 07/31/17 17:15 Eos # 0.0 K/mm3 (0.0-0.4) 07/31/17 17:15 Baso # 0.1 K/mm3 (0.0-0.1) 07/31/17 17:15 Seg Neutrophils % 87.4 % (40.0-70.0) H 07/31/17 17:15 Seg Neutrophils # 9.6 K/mm3 (1.8-7.7) H 07/31/17 17:15 PT 16.2 Sec. (12.2-14.9) H 07/31/17 17:15 INR 1.23 (0.87-1.13) H 07/31/17 17:15 APTT 44.8 Sec. (24.2-36.6) H 07/31/17 17:15 Sodium 135 mmol/L (137-145) L 07/31/17 17:15 Potassium 3.6 mmol/L (3.6-5.0) 07/31/17 17:15 Chloride 97.3 mmol/L (98-107) L 07/31/17 17:15 Carbon Dioxide 27 mmol/L (22-30) 07/31/17 17:15 Anion Gap 14 mmol/L 07/31/17 17:15 BUN 11 mg/dL (7-17) 07/31/17 17:15 Creatinine 1.8 mg/dL (0.7-1.2) H 07/31/17 17:15 Estimated GFR 27 ml/min 07/31/17 17:15 BUN/Creatinine Ratio 6 % 07/31/17 17:15 Glucose 115 mg/dL (65-100) H 07/31/17 17:15 Calcium 7.3 mg/dL (8.4-10.2) L 07/31/17 17:15 Short CBC 07/31/17 08/01/17 Range/Units 17:15 04:38 WBC 10.9 9.3 (4.5-11.0) K/mm3 Hgb 9.8 L 8.0 L (10.1-14.3) gm/dl Hct 31.4 25.0 L D (30.3-42.9) % Plt Count 151 121 L (140-440) K/mm3 BMP 07/31/17 08/01/17 17:15 04:38 Sodium 135 L 133 L Potassium 3.6 3.7 Chloride 97.3 L 97.3 L Carbon Dioxide 27 28 BUN 11 13 Creatinine 1.8 H 2.1 H Glucose 115 H 140 H Calcium 7.3 L 7.0 L Liver Function 08/01/17 Range/Units 04:38 Total Bilirubin 0.20 (0.1-1.2) mg/dL AST 10 (5-40) units/L ALT 6 L (7-56) units/L Alkaline Phosphatase 90 (35-129) units/L Albumin 1.6 L (3.9-5) g/dL - Imaging and Cardiology EKG: report reviewed Assessment and Plan Advance Directives: Yes (FC) VTE prophylaxis?: Chemical Plan of care discussed with patient/family: Yes - Patient Problems (1) AV graft thrombosis Current Visit: Yes Status: Acute Qualifiers: Encounter type: initial encounter Qualified Code(s): T82.868A - Thrombosis due to vascular prosthetic devices, implants and grafts, initial encounter Plan to address problem: Patient being taken for Vascath placement to label cutter.Declotting of AVG -LUE today or Jul following Vascath placement (2) Anticoagulation goal of INR 1.5 to 2.5 Current Visit: Yes Status: Chronic Plan to address problem: Patient on warfarin 1 mg po qd Will discuss with Nephrology whether INR needs to be therapeutic?? (3) End-stage renal disease on hemodialysis Current Visit: Yes Status: Chronic Plan to address problem: Cont HD.Nephrology consulted Cont Renvela (4) Hypotension Current Visit: Yes Status: Chronic Qualifiers: Hypotension type: idiopathic hypotension Qualified Code(s): I95.0 - Idiopathic hypotension Plan to address problem: Cont Midodrine (5) Arrhythmia, long-term Current Visit: Yes Status: Chronic Plan to address problem: Cont Amiodarone (6) GERD (gastroesophageal reflux disease) Current Visit: No Status: Chronic Qualifiers: Esophagitis presence: without esophagitis Qualified Code(s): K21.9 - Gastro -esophageal reflux disease without esophagitis Plan to address problem: On PPI's (7) COPD (chronic obstructive pulmonary disease) Current Visit: Yes Status: Chronic Qualifiers: Emphysema type: unspecified Plan to address problem: Cont Neb treatments prn (8) DVT prophylaxis Current Visit: No Status: Acute Plan to address problem: on Heparin
[2017-07-31] MEDS ORDERED: DULCOLAX PR PRN (22:34)
[2017-07-31] MEDS ORDERED: MILK OF MAGNESIA PO PRN (22:34)
[2017-07-31] MEDS ORDERED: PERCOCET 5/325 PO PRN (22:34)
[2017-07-31] MEDS ORDERED: TYLENOL PO PRN (22:34)
[2017-07-31] MEDS ORDERED: ZOFRAN IV PRN (22:34)
[2017-07-31] MEDS: MORPHINE IV PRN (23:22)
[2017-07-31] MEDS: NEURONTIN PO SCH (23:23)
[2017-07-31] MEDS: LOPRESSOR PO SCH (23:23)
[2017-08-01] MEDS: MORPHINE IV PRN (03:23)
[2017-08-01 04:51] LABS: Basophils % (Auto) 0.6 % (0.0-1.8); Eosinophils % (Auto) 0.2 % (0.0-4.3); Mean Corpuscular HGB Conc 32 % (30-34); Mean Corpuscular Hemoglobin 32 pg (28-32); Mean Corpuscular Volume 100 fl (79-97); Platelet Count 121 K/mm3 (140-440); Red Blood Count 2.51 M/mm3 (3.65-5.03); Red Cell Distribution Width 19.8 % (13.2-15.2); White Blood Count 9.3 K/mm3 (4.5-11.0)
[2017-08-01 05:16] LABS: Albumin 1.6 g/dL (3.9-5); Albumin/Globulin Ratio 0.6 %; Bilirubin,Total 0.2 mg/dL (0.1-1.2); Chloride 97.3 mmol/L (98-107); Potassium 3.7 mmol/L (3.6-5.0); Total Protein 4.4 g/dL (6.3-8.2)
[2017-08-01] MEDS: NEURONTIN PO SCH ×3 (06:31→22:00)
[2017-08-01] MEDS: RENVELA PO SCH ×3 (08:15→18:11)
--- NOTE | 2017-08-01 08:35 | Progress Note ---
Assessment and Plan Assessment and plan: Patient is a 77 y/0 female with pmH significant for ESRD, HTN, DM, CHF, Right AKA, chronic opiod dependance syndrome, sacral pressure ulcer, Arrhythmias and DVT sent from [facility] for non functioning AV graft in [facility]. Patient had HD on thu07/29/17. No Sob present. Patient being taken to laborer cement gun placing for vascath placement which was Successful sonographically and fluoroscopically guided placement of a left common femoral vein triple lumen nontunneled noncuffed hemodialysis catheter with plan for possible declotting of AVG in E on . . Left Upper ext AV Graft Thrombosis * Vascular following. S/P Successful sonographically and fluoroscopically guided placement of a left common femoral vein triple lumen nontunneled noncuffed hemodialysis catheter, With plan for AV graft revision on 08/03/17 Secondary Coagulopathy * Continue Coumadin. Likely being used due to Afib. Therapeutic goal of 2-3, But considering planned procedure will monitor closely without bridging. ESRD * Nephrology consulted. Continue HD Atrial Fibrillation * Rate controlled. with amiodarone, lopressor * Coumadin Hypotension-Chronic, Unspecified. * Continue Midodrine. 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 Currently patient has left groin Catheter. History Interval history: Patient seen and examined, in no acute distress. Nursing staff reports son continually requesting pain meds for the mother. Patient at this time denies any chest pain, nausea, vomiting, shortness of breath. Hospitalist Physical - Physical exam Narrative exam: VITAL SIGNS: Reviewed. GENERAL: The patient appeared well nourished and normally developed. Vital signs as documented. HEAD: No signs of head trauma. EYES: Pupils are equal. Extraocular motions intact. EARS: Hearing grossly intact. MOUTH: Oropharynx is normal. NECK: No adenopathy, no JVD. CHEST: Chest with Diminshed breath sounds bilaterally. No wheezes, rales, or rhonchi. CARDIAC: Irregular irregular, rate controlled. S1 and S2, without murmurs, gallops, or rubs. VASCULAR: Bilateral upper extremity 2+ edema Peripheral pulses normal and equal in all extremities. ABDOMEN: Soft, without detectable tenderness. No sign of distention. No rebound or guarding, and no masses palpated. Bowel Sounds normal. MUSCULOSKELETAL: Right AKA, bilateral extremity 2+ edema NEUROLOGIC EXAM: Alert and oriented x 3. No focal sensory or strength deficits. Speech normal. Follows commands. PSYCHIATRIC: Mood normal. SKIN: Pressure ulcer - Constitutional Vitals: Temp Pulse Resp BP Pulse Ox 99.6 F 79 18 127/42 100 08/01/17 07:57 08/01/17 07:57 08/01/17 07:57 08/01/17 07:57 08/01/17 08:00 General appearance: Present: no acute distress, well-nourished Results - Labs CBC & Chem 7: 08/01/17 04:38 08/01/17 04:38 Labs: Laboratory Last Values WBC 9.3 K/mm3 (4.5-11.0) 08/01/17 04:38 RBC 2.51 M/mm3 (3.65-5.03) L 08/01/17 04:38 Hgb 8.0 gm/dl (10.1-14.3) L 08/01/17 04:38 Hct 25.0 % (30.3-42.9) L D 08/01/17 04:38 MCV 100 fl (79-97) H 08/01/17 04:38 MCH 32 pg (28-32) 08/01/17 04:38 MCHC 32 % (30-34) 08/01/17 04:38 RDW 19.8 % (13.2-15.2) H 08/01/17 04:38 Plt Count 121 K/mm3 (140-440) L 08/01/17 04:38 Lymph % (Auto) 8.4 % (13.4-35.0) L 08/01/17 04:38 [place] % (Auto) 6.0 % (0.0-7.3) 08/01/17 04:38 Eos % (Auto) 0.2 % (0.0-4.3) 08/01/17 04:38 Baso % (Auto) 0.6 % (0.0-1.8) 08/01/17 04:38 Lymph # 0.8 K/mm3 (1.2-5.4) L 08/01/17 04:38 [place] # 0.6 K/mm3 (0.0-0.8) 08/01/17 04:38 Eos # 0.0 K/mm3 (0.0-0.4) 08/01/17 04:38 Baso # 0.1 K/mm3 (0.0-0.1) 08/01/17 04:38 Seg Neutrophils % 84.8 % (40.0-70.0) H 08/01/17 04:38 Seg Neutrophils # 7.9 K/mm3 (1.8-7.7) H 08/01/17 04:38 PT 16.2 Sec. (12.2-14.9) H 07/31/17 17:15 INR 1.23 (0.87-1.13) H 07/31/17 17:15 APTT 44.8 Sec. (24.2-36.6) H 07/31/17 17:15 Sodium 133 mmol/L (137-145) L 08/01/17 04:38 Potassium 3.7 mmol/L (3.6-5.0) 08/01/17 04:38 Chloride 97.3 mmol/L (98-107) L 08/01/17 04:38 Carbon Dioxide 28 mmol/L (22-30) 08/01/17 04:38 Anion Gap 11 mmol/L 08/01/17 04:38 BUN 13 mg/dL (7-17) 08/01/17 04:38 Creatinine 2.1 mg/dL (0.7-1.2) H 08/01/17 04:38 Estimated GFR 23 ml/min 08/01/17 04:38 BUN/Creatinine Ratio 6 % 08/01/17 04:38 Glucose 140 mg/dL (65-100) H 08/01/17 04:38 Calcium 7.0 mg/dL (8.4-10.2) L 08/01/17 04:38 Total Bilirubin 0.20 mg/dL (0.1-1.2) 08/01/17 04:38 AST 10 units/L (5-40) 08/01/17 04:38 ALT 6 units/L (7-56) L 08/01/17 04:38 Alkaline Phosphatase 90 units/L (35-129) 08/01/17 04:38 Total Protein 4.4 g/dL (6.3-8.2) L 08/01/17 04:38 Albumin 1.6 g/dL (3.9-5) L 08/01/17 04:38 Albumin/Globulin Ratio 0.6 % 08/01/17 04:38 - Imaging and Cardiology Imaging and Cardiology: Doppler ordered and pending
[2017-08-01] MEDS ORDERED: ROXICODONE PO PRN ×2 (08:41→09:01)
[2017-08-01] MEDS: PLAVIX PO SCH (09:12)
[2017-08-01] MEDS: PROTONIX PO SCH (09:12)
[2017-08-01] MEDS: COLACE PO SCH (09:12)
[2017-08-01] MEDS: SODIUM BICARBONATE PO SCH ×2 (09:12→22:45)
[2017-08-01] MEDS: HEPARIN SUB-Q SCH ×2 (09:13→22:49)
[2017-08-01] MEDS: FOLVITE PO SCH (09:13)
--- NOTE | 2017-08-01 09:13 | Consultation ---
History of Present Illness - Reason for Consult Consult date: 08/01/17 - History of Present Illness Patient with a history of end-stage renal disease on hemodialysis who presented in the emergency room with a thrombosed AV graft. She was subsequently taken to the angiography suite and a temporary dialysis catheter placed in her groin. The patient will need declotting of her access followed by removal of her Past History Past Medical History: acute [place], arthritis, CAD, COPD, ESRD, hypertension Past Surgical History: cholecystectomy, CABG, Other (pacemaker, L AVG, L AKA) Social history: , other (lives in [facility]) Family history: CAD, hypertension Medications and Allergies Allergies Allergy/AdvReac Type Severity Reaction Status Date / Time codeine AdvReac Nausea Verified 06/26/14 17:48 Sulfa (Sulfonamide AdvReac Unknown Verified 06/26/14 17:48 Antibiotics) Home Medications Medication Instructions Recorded Confirmed Last Taken Type Folic Acid [Folvite] 1 mg PO QDAY 06/23/15 07/31/17 06/10/17 History Sertraline [Zoloft] 50 mg PO QDAY 06/23/15 07/31/17 06/10/17 History Sevelamer Carbonate [Renvela] 2 tab PO TIDWM 06/23/15 07/31/17 06/10/17 History Sodium Bicarbonate 650 mg PO BID 06/23/15 07/31/17 06/10/17 History [place]-3S/Dha/Epa/Fish Oil [Fish 1 each PO DAILY 11/17/15 07/31/17 06/10/17 History Oil 1,200 mg Softgel] Acetaminophen [Tylenol Arthritis] 650 mg PO Q8H PRN 05/28/16 07/31/17 1 Week Ago History ~07/11/16 B Complex 11/Folic/C/Biot/Zinc 1 tab PO DAILY 05/28/16 07/31/17 06/10/17 History [Dialyvite with Zinc Tablet] Lansoprazole [Prevacid] 30 mg PO DAILY 05/28/16 07/31/17 06/10/17 History Ergocalciferol (Vitamin D2) 2,000 unit PO 1XW 07/17/16 07/31/17 1 Day Ago History [Vitamin D2] ~07/17/16 Clopidogrel [Plavix] 75 mg PO QDAY #30 tablet 07/21/16 07/31/17 06/10/17 Rx ALPRAZolam [Xanax TAB] 0.5 mg PO BID 06/10/17 07/31/17 06/10/17 History Docusate Sodium [Colace CAP] 200 mg PO DAILY 06/10/17 07/31/17 06/10/17 History Metoprolol [Lopressor TAB] 12.5 mg PO BID #60 tablet 06/23/17 07/31/17 Unknown Rx Gabapentin [Neurontin] 300 mg PO Q8HR 07/13/17 07/31/17 Unknown History ALBUTEROL NEB's [Proventil 0.083% 2.5 mg IH Q4HRT PRN #30 nebu 07/28/17 Unknown Rx NEBS] Amiodarone [Cordarone 200 MG TAB] 200 mg PO QDAY #60 tablet 07/28/17 07/31/17 Unknown Rx Cefuroxime [Ceftin] 500 mg PO Q24HR #14 tablet 07/28/17 07/31/17 Unknown Rx Midodrine [Proamatine] 5 mg PO 3XW #30 tablet 07/28/17 07/31/17 Unknown Rx Pantoprazole [Protonix TAB] 40 mg PO DAILY #30 tablet 07/28/17 07/31/17 Unknown Rx Warfarin [Coumadin] 1 mg PO DAILY@1700 #30 tablet 07/28/17 07/31/17 Unknown Rx Active Meds: Active Medications Acetaminophen (Tylenol) 650 mg PO Q4H PRN PRN Reason: Pain MILD(1-3)/Fever >100.5/GARRIDO Albuterol (Proventil) 2.5 mg IH Q4HRT PRN PRN Reason: Shortness Of Breath Alprazolam (Xanax) 0.25 mg PO BID JOAN Amiodarone HCl (Cordarone) 200 mg PO QDAY JOAN Bisacodyl (Dulcolax) 10 mg MO QDAY PRN PRN Reason: Constipation unrelieved by MOM Clopidogrel Bisulfate (Plavix) 75 mg PO QDAY JOAN Docusate Sodium (Colace) 200 mg PO DAILY [facility] Folic Acid (Folvite) 1 mg PO QDAY [facility] Gabapentin (Neurontin) 300 mg PO Q8HR [facility] Last Admin: 08/01/17 06:31 Dose: Not Given Heparin Sodium (Porcine) (Heparin) 5,000 unit SUB-Q Q12HR [facility] Magnesium Hydroxide (Milk Of Magnesia) 30 ml PO Q4H PRN PRN Reason: Constipation Metoprolol Tartrate (Lopressor) 12.5 mg PO BID [facility] Last Admin: 07/31/17 23:23 Dose: Not Given Midodrine (Proamatine) 5 mg PO MoWeFr [facility] Ondansetron HCl (Zofran) 4 mg IV Q8H PRN PRN Reason: N/V unrelieved by Reglan Oxycodone HCl (Roxicodone) 5 mg PO Q6H PRN PRN Reason: Pain, Moderate (4-6) Pantoprazole Sodium (Protonix) 40 mg PO DAILY [facility] Sertraline HCl (Zoloft) 50 mg PO QDAY [facility] Sevelamer Carbonate (Renvela) 800 mg PO TIDWM [facility] Last Admin: 08/01/17 08:15 Dose: 800 mg Sodium Bicarbonate (Sodium Bicarbonate) 650 mg PO BID [facility] Vitamin B Complex/Vitamin C ([place] With C) 1 each PO DAILY [facility] Review of Systems All systems: negative Exam - Constitutional Vitals: Temp Pulse Resp BP Pulse Ox 99.6 F 79 18 127/42 100 08/01/17 07:57 08/01/17 07:57 08/01/17 07:57 08/01/17 07:57 08/01/17 08:00 General appearance: Present: no acute distress, other (mildly confused) - EENT Eyes: Present: PERRL ENT: hearing intact - Neck Neck: Present: supple, normal ROM - Respiratory Respiratory effort: normal - Extremities Extremities: abnormal (thrombosed graft) Extremity abnormal: edema - Abdominal General gastrointestinal: Present: deferred Female genitourinary: Present: deferred - Rectal Rectal Exam: deferred - Psychiatric Psychiatric: cooperative Results - Labs CBC & Chem 7: 08/01/17 04:38 08/01/17 04:38 Labs: Abnormal lab results 07/31/17 07/31/17 07/31/17 Range/Units 17:15 17:15 17:15 RBC 3.12 L (3.65-5.03) M/mm3 Hgb 9.8 L (10.1-14.3) gm/dl Hct (30.3-42.9) % MCV 100 H (79-97) fl RDW 20.2 H (13.2-15.2) % Plt Count (140-440) K/mm3 Lymph % (Auto) 6.6 L (13.4-35.0) % Lymph # 0.7 L (1.2-5.4) K/mm3 Seg Neutrophils % 87.4 H (40.0-70.0) % Seg Neutrophils # 9.6 H (1.8-7.7) K/mm3 PT 16.2 H (12.2-14.9) Sec. INR 1.23 H (0.87-1.13) APTT 44.8 H (24.2-36.6) Sec. Sodium 135 L (137-145) mmol/L Chloride 97.3 L (98-107) mmol/L Creatinine 1.8 H (0.7-1.2) mg/dL Glucose 115 H (65-100) mg/dL Calcium 7.3 L (8.4-10.2) mg/dL ALT (7-56) units/L Total Protein (6.3-8.2) g/dL Albumin (3.9-5) g/dL 08/01/17 08/01/17 Range/Units 04:38 04:38 RBC 2.51 L (3.65-5.03) M/mm3 Hgb 8.0 L (10.1-14.3) gm/dl Hct 25.0 L D (30.3-42.9) % MCV 100 H (79-97) fl RDW 19.8 H (13.2-15.2) % Plt Count 121 L (140-440) K/mm3 Lymph % (Auto) 8.4 L (13.4-35.0) % Lymph # 0.8 L (1.2-5.4) K/mm3 Seg Neutrophils % 84.8 H (40.0-70.0) % Seg Neutrophils # 7.9 H (1.8-7.7) K/mm3 PT (12.2-14.9) Sec. INR (0.87-1.13) APTT (24.2-36.6) Sec. Sodium 133 L (137-145) mmol/L Chloride 97.3 L (98-107) mmol/L Creatinine 2.1 H (0.7-1.2) mg/dL Glucose 140 H (65-100) mg/dL Calcium 7.0 L (8.4-10.2) mg/dL ALT 6 L (7-56) units/L Total Protein 4.4 L (6.3-8.2) g/dL Albumin 1.6 L (3.9-5) g/dL Assessment and Plan Patient will be scheduled for a declot on Thursday.
[2017-08-01] MEDS: ZOLOFT PO SCH (09:14)
[2017-08-01] MEDS: CORDARONE PO SCH (09:14)
[2017-08-01] MEDS: XANAX PO SCH ×2 (09:23→22:45)
[2017-08-01] MEDS ORDERED: NON-FORMULARY (Lansoprazole [Prevacid] 30 MG) PO SCH (10:00)
[2017-08-01] MEDS: LOPRESSOR PO SCH ×2 (10:00→22:00)
[2017-08-01] MEDS ORDERED: PEPCID PO SCH (10:00)
[2017-08-01] MEDS ORDERED: XANAX PO SCH (10:00)
[2017-08-01] MEDS: ALLBEE WITH C PO SCH (10:55)
[2017-08-01] MEDS ORDERED: NACL 0.9% 100 ML IV PRN (13:18)
[2017-08-01] MEDS ORDERED: PROCRIT IV PRN (13:18)
--- NOTE | 2017-08-01 13:18 | Consultation ---
History of Present Illness - Reason for Consult Consult date: 08/01/17 end stage renal disease Requesting physician: VINCENT MACHADO - History of Present Illness 77 y/0 female with pmH significant for ESRD HTN DM CHF Arrhythmias and DVT sent from the dialysis clinic yesterday because of a clotted AV access . She undergoes hemodialysis under my care at [facility]. She did have an extra dialysis treatment on due to volume overload. However she could not dialyze yesterday because of her clotted access. Her normal days are Mondays, Wednesdays and Fridays. Patient had a femoral Vas-Cath placed by vascular surgery yesterday. She denies any shortness of breath. No nausea vomiting or diarrhea Past History Past Medical History: acute [place], arthritis, CAD, COPD, ESRD, hypertension Past Surgical History: cholecystectomy, CABG, Other (pacemaker, L AVG, L AKA) Social history: , other (lives in [facility]) Family history: CAD, hypertension Medications and Allergies Allergies Allergy/AdvReac Type Severity Reaction Status Date / Time codeine AdvReac Nausea Verified 06/26/14 17:48 Sulfa (Sulfonamide AdvReac Unknown Verified 06/26/14 17:48 Antibiotics) Home Medications Medication Instructions Recorded Confirmed Last Taken Type Folic Acid [Folvite] 1 mg PO QDAY 06/23/15 07/31/17 06/10/17 History Sertraline [Zoloft] 50 mg PO QDAY 06/23/15 07/31/17 06/10/17 History Sevelamer Carbonate [Renvela] 2 tab PO TIDWM 06/23/15 07/31/17 06/10/17 History Sodium Bicarbonate 650 mg PO BID 06/23/15 07/31/17 06/10/17 History [place]-3S/Dha/Epa/Fish Oil [Fish 1 each PO DAILY 11/17/15 07/31/17 06/10/17 History Oil 1,200 mg Softgel] Acetaminophen [Tylenol Arthritis] 650 mg PO Q8H PRN 05/28/16 07/31/17 1 Week Ago History ~07/11/16 B Complex 11/Folic/C/Biot/Zinc 1 tab PO DAILY 05/28/16 07/31/17 06/10/17 History [Dialyvite with Zinc Tablet] Lansoprazole [Prevacid] 30 mg PO DAILY 05/28/16 07/31/17 06/10/17 History Ergocalciferol (Vitamin D2) 2,000 unit PO 1XW 07/17/16 07/31/17 1 Day Ago History [Vitamin D2] ~07/17/16 Clopidogrel [Plavix] 75 mg PO QDAY #30 tablet 07/21/16 07/31/17 06/10/17 Rx ALPRAZolam [Xanax TAB] 0.5 mg PO BID 06/10/17 07/31/17 06/10/17 History Docusate Sodium [Colace CAP] 200 mg PO DAILY 06/10/17 07/31/17 06/10/17 History Metoprolol [Lopressor TAB] 12.5 mg PO BID #60 tablet 06/23/17 07/31/17 Unknown Rx Gabapentin [Neurontin] 300 mg PO Q8HR 07/13/17 07/31/17 Unknown History ALBUTEROL NEB's [Proventil 0.083% 2.5 mg IH Q4HRT PRN #30 nebu 07/28/17 Unknown Rx NEBS] Amiodarone [Cordarone 200 MG TAB] 200 mg PO QDAY #60 tablet 07/28/17 07/31/17 Unknown Rx Cefuroxime [Ceftin] 500 mg PO Q24HR #14 tablet 07/28/17 07/31/17 Unknown Rx Midodrine [Proamatine] 5 mg PO 3XW #30 tablet 07/28/17 07/31/17 Unknown Rx Pantoprazole [Protonix TAB] 40 mg PO DAILY #30 tablet 07/28/17 07/31/17 Unknown Rx Warfarin [Coumadin] 1 mg PO DAILY@1700 #30 tablet 07/28/17 07/31/17 Unknown Rx Active Meds: Active Medications Acetaminophen (Tylenol) 650 mg PO Q4H PRN PRN Reason: Pain MILD(1-3)/Fever >100.5/GARRIDO Albuterol (Proventil) 2.5 mg IH Q4HRT PRN PRN Reason: Shortness Of Breath Alprazolam (Xanax) 0.25 mg PO BID [facility] Last Admin: 08/01/17 09:23 Dose: 0.25 mg Amiodarone HCl (Cordarone) 200 mg PO QDAY [facility] Last Admin: 08/01/17 09:14 Dose: 200 mg Bisacodyl (Dulcolax) 10 mg [place] QDAY PRN PRN Reason: Constipation unrelieved by MOM Clopidogrel Bisulfate (Plavix) 75 mg PO QDAY [facility] Last Admin: 08/01/17 09:12 Dose: 75 mg Docusate Sodium (Colace) 200 mg PO DAILY [facility] Last Admin: 08/01/17 09:12 Dose: 200 mg Folic Acid (Folvite) 1 mg PO QDAY [facility] Last Admin: 08/01/17 09:13 Dose: 1 mg Gabapentin (Neurontin) 300 mg PO Q8HR [facility] Last Admin: 08/01/17 06:31 Dose: Not Given Heparin Sodium (Porcine) (Heparin) 5,000 unit SUB-Q Q12HR [facility] Last Admin: 08/01/17 09:13 Dose: 5,000 unit Magnesium Hydroxide (Milk Of Magnesia) 30 ml PO Q4H PRN PRN Reason: Constipation Metoprolol Tartrate (Lopressor) 12.5 mg PO BID [facility] Last Admin: 08/01/17 10:00 Dose: Not Given Midodrine (Proamatine) 5 mg PO MoWeFr [facility] Ondansetron HCl (Zofran) 4 mg IV Q8H PRN PRN Reason: N/V unrelieved by Reglan Oxycodone HCl (Roxicodone) 5 mg PO Q6H PRN PRN Reason: Pain, Moderate (4-6) Last Admin: 08/01/17 12:00 Dose: 5 mg Pantoprazole Sodium (Protonix) 40 mg PO DAILY [facility] Last Admin: 08/01/17 09:12 Dose: 40 mg Sertraline HCl (Zoloft) 50 mg PO QDAY [facility] Last Admin: 08/01/17 09:14 Dose: 50 mg Sevelamer Carbonate (Renvela) 800 mg PO TIDWM [facility] Last Admin: 08/01/17 11:56 Dose: 800 mg Sodium Bicarbonate (Sodium Bicarbonate) 650 mg PO BID [facility] Last Admin: 08/01/17 09:12 Dose: 650 mg Vitamin B Complex/Vitamin C ([place]bee With C) 1 each PO DAILY [facility] Last Admin: 08/01/17 10:55 Dose: 1 each Review of Systems All systems: negative (negative except as noted above) Exam - Vital Signs Vital signs: Vital Signs Pulse Ox 100 07/31/17 13:58 - General Appearance General appearance: well-developed, well-nourished, appears stated age EENT: PERRL, mucous membranes moist Neck: Present: neck supple, trachea midline. Absent: JVD/HJR, Masses Respiratory: Clear to Ascultation Heart: regular, normal heart rate Gastrointestinal: Present: normal, normoactive bowel sounds Integumentary: other (1+ pitting edema. Patient has right above-knee amputation. AV fistula in the left upper arm. No bruit or thrill. Left femoral Vas-Cath in place) Results - Lab Results 08/01/17 04:38 08/01/17 04:38 Most recent lab results Calcium 7.0 mg/dL (8.4-10.2) L 08/01/17 04:38 Assessment and Plan Impression * End-stage renal disease on maintenance hemodialysis * Clotted AV access * Fluid overload * Cardiomyopathy * History of obstructive uropathy * Coronary artery disease * Hypertension * Anemia secondary to ESRD Recommendations * Shall schedule patient for hemodialysis today and remove fluid as tolerated * Her outpatient days however Mondays, Wednesdays and Fridays * Vascular surgery notes appreciated. Patient is to have declot of AV access on Thursday * Shall administer Procrit with dialysis * Adjust diet and metastases to ESRD state * Binders with diet * Thank you very much for the consultation. Shall follow along with you
[2017-08-01] MEDS: ROXICODONE PO PRN ×2 (15:08→22:45)
[2017-08-01] MEDS ORDERED: NACL 0.9 (PRIMING MACHINE ONLY DIALYSIS) MC ONE (17:55)
[2017-08-01] MEDS ORDERED: HEPARIN IV PRN (19:31)
[2017-08-02 05:27] LABS: Hematocrit 23.9 % (30.3-42.9); Hemoglobin 7.4 gm/dl (10.1-14.3); Mean Corpuscular HGB Conc 31 % (30-34); Mean Corpuscular Hemoglobin 31 pg (28-32); Mean Corpuscular Volume 101 fl (79-97); Platelet Count 100 K/mm3 (140-440); Red Blood Count 2.38 M/mm3 (3.65-5.03); White Blood Count 11.3 K/mm3 (4.5-11.0)
[2017-08-02 05:30] LABS: Red Cell Distribution Width 20.1 % (13.2-15.2)
[2017-08-02 05:46] LABS: Chloride 101.8 mmol/L (98-107); Potassium 3.2 mmol/L (3.6-5.0)
[2017-08-02] MEDS: NEURONTIN PO SCH ×2 (06:00→13:56)
[2017-08-02] MEDS: RENVELA PO SCH ×3 (08:17→17:02)
[2017-08-02] MEDS: ROXICODONE PO PRN ×2 (08:17→18:06)
[2017-08-02] MEDS: HEPARIN SUB-Q SCH ×2 (10:12→21:32)
[2017-08-02] MEDS: ZOLOFT PO SCH (10:14)
[2017-08-02] MEDS: SODIUM BICARBONATE PO SCH ×2 (10:14→21:30)
[2017-08-02] MEDS: PLAVIX PO SCH (10:14)
[2017-08-02] MEDS: ALLBEE WITH C PO SCH (10:14)
[2017-08-02] MEDS: CORDARONE PO SCH (10:15)
[2017-08-02] MEDS: COLACE PO SCH (10:15)
[2017-08-02] MEDS: FOLVITE PO SCH (10:15)
[2017-08-02] MEDS: PROTONIX PO SCH (10:15)
[2017-08-02] MEDS: LOPRESSOR PO SCH ×2 (10:16→21:31)
[2017-08-02] MEDS: XANAX PO SCH ×2 (10:18→21:29)
--- NOTE | 2017-08-02 10:53 | Event Note ---
Date: 08/02/17 Patient with history of thrombosis RUE AV graft, we'll schedule for thrombectomy tomorrow.
--- NOTE | 2017-08-02 12:18 | Progress Note ---
Assessment and Plan Impression * End-stage renal disease on maintenance hemodialysis * Clotted AV access * Fluid overload * Cardiomyopathy * History of obstructive uropathy * Coronary artery disease * Hypertension * Anemia secondary to ESRD * Hypokalemia Recommendations * Patient had uneventful hemodialysis yesterday . * Shall dialyze her again after her lumpectomy tomorrow. Discussed with Dr. Rodriguez * Her outpatient days however Mondays, Wednesdays and Fridays * Shall administer Procrit with dialysis * Adjust diet and meds for ESRD state * Binders with diet * Replace potassium Subjective Date of service: 08/02/17 Interval history: Patient feels better today. Denies any shortness of breath. No nausea vomiting or diarrhea Objective - Vital Signs Vital signs: Vital Signs - 12hr 08/02/17 08/02/17 08/02/17 04:51 08:15 08:17 Temperature 99.5 F 98.5 F Pulse Rate 72 Respiratory 18 18 18 Rate Blood Pressure 145/50 Blood Pressure 139/53 [Left] O2 Sat by Pulse 97 Oximetry 08/02/17 08/02/17 10:00 10:16 Temperature Pulse Rate 93 H 72 Respiratory 18 Rate Blood Pressure 139/53 Blood Pressure [Left] O2 Sat by Pulse 96 Oximetry - General Appearance General appearance: well-developed, well-nourished, appears stated age EENT: PERRL, mucous membranes moist Neck: no JVD, no thyromegaly, no carotid bruit, supple Respiratory: Present: Clear to Ascultation Cardiology: regular, normal heart rate Gastrointestinal: normal, normoactive bowel sounds Integumentary: other (right above-knee amputation. 1+ pitting edema. Left femoral Vas-Cath in place) - Lab 08/02/17 05:00 08/02/17 05:00 Most recent lab results Calcium 7.0 mg/dL (8.4-10.2) L 08/02/17 05:00
[2017-08-02] MEDS ORDERED: PROCRIT IV PRN (12:22)
[2017-08-02] MEDS ORDERED: K-DUR PO ONE (13:00)
--- NOTE | 2017-08-02 18:40 | Progress Note ---
Assessment and Plan - Patient Problems (1) AV graft thrombosis Current Visit: Yes Status: Acute Qualifiers: Encounter type: initial encounter Qualified Code(s): T82.868A - Thrombosis due to vascular prosthetic devices, implants and grafts, initial encounter Plan to address problem: Patient being taken for Vascath placement to lab head.Declotting of AVG -LUE today or Jul following Vascath placement (2) Anticoagulation goal of INR 1.5 to 2.5 Current Visit: Yes Status: Chronic Plan to address problem: Patient on warfarin 1 mg po qd Will discuss with Nephrology whether INR needs to be therapeutic?? (3) End-stage renal disease on hemodialysis Current Visit: Yes Status: Chronic Plan to address problem: Cont HD.Nephrology consulted Cont Renvela (4) Hypotension Current Visit: Yes Status: Chronic Qualifiers: Hypotension type: idiopathic hypotension Qualified Code(s): I95.0 - Idiopathic hypotension Plan to address problem: Cont Midodrine (5) Arrhythmia, usp Current Visit: Yes Status: Chronic Plan to address problem: Cont Amiodarone (6) GERD (gastroesophageal reflux disease) Current Visit: No Status: Chronic Qualifiers: Esophagitis presence: without esophagitis Qualified Code(s): K21.9 - Gastro -esophageal reflux disease without esophagitis Plan to address problem: On PPI's (7) COPD (chronic obstructive pulmonary disease) Current Visit: Yes Status: Chronic Qualifiers: Emphysema type: unspecified Plan to address problem: Cont Neb treatments prn (8) DVT prophylaxis Current Visit: No Status: Acute Plan to address problem: on Heparin Subjective Date of service: 08/02/17 Principal diagnosis: Clotted Access Interval history: Sx better Objective - Constitutional Vitals: Vital Signs - 12hr 08/02/17 08/02/17 08/02/17 08:15 08:17 10:00 Temperature 98.5 F Pulse Rate 72 93 H Respiratory 18 18 18 Rate Blood Pressure Blood Pressure 139/53 [Left] O2 Sat by Pulse 97 96 Oximetry 08/02/17 08/02/17 08/02/17 10:16 16:58 18:06 Temperature 98.5 F Pulse Rate 72 73 Respiratory 18 18 Rate Blood Pressure 139/53 Blood Pressure 128/51 [Left] O2 Sat by Pulse 96 Oximetry General appearance: Present: no acute distress, well-nourished - EENT Eyes: PERRL, EOM intact ENT: hearing intact, clear oral mucosa Ears: bilateral: normal - Neck Neck: supple, normal ROM - Respiratory Respiratory effort: normal Respiratory: bilateral: CTA - Breasts Breasts: normal - Cardiovascular Rhythm: regular Heart Sounds: Present: S1 & S2. Absent: gallop, rub Extremities: pulses intact, No edema, normal color, Full ROM - Gastrointestinal General gastrointestinal: Present: soft, non-tender, non-distended, normal bowel sounds - Genitourinary Female genitourinary: normal - Integumentary Integumentary: clear, warm, dry - Musculoskeletal Musculoskeletal: 1, strength equal bilaterally - Neurologic Neurologic: moves all extremities - Psychiatric Psychiatric: memory intact, appropriate mood/affect, intact judgment & insight - Labs CBC & Chem 7: 08/03/17 05:50 08/03/17 05:50 Labs: Abnormal lab results 08/01/17 08/02/17 08/02/17 Range/Units 21:55 05:00 05:00 WBC 11.3 H (4.5-11.0) K/mm3 RBC 2.38 L (3.65-5.03) M/mm3 Hgb 7.4 L (10.1-14.3) gm/dl Hct 23.9 L (30.3-42.9) % MCV 101 H (79-97) fl RDW 20.1 H (13.2-15.2) % Plt Count 100 L (140-440) K/mm3 Potassium 3.2 L (3.6-5.0) mmol/L Creatinine 1.4 H (0.7-1.2) mg/dL Glucose 177 H (65-100) mg/dL POC Glucose 211 H (70-105) Calcium 7.0 L (8.4-10.2) mg/dL 08/02/17 08/02/17 Range/Units 11:47 16:59 WBC (4.5-11.0) K/mm3 RBC (3.65-5.03) M/mm3 Hgb (10.1-14.3) gm/dl Hct (30.3-42.9) % MCV (79-97) fl RDW (13.2-15.2) % Plt Count (140-440) K/mm3 Potassium (3.6-5.0) mmol/L Creatinine (0.7-1.2) mg/dL Glucose (65-100) mg/dL POC Glucose 131 H 158 H (70-105) Calcium (8.4-10.2) mg/dL
[2017-08-03] MEDS: NEURONTIN PO SCH ×3 (06:01→22:25)
[2017-08-03 06:02] LABS: Hematocrit 24.3 % (30.3-42.9); Hemoglobin 7.5 gm/dl (10.1-14.3); Mean Corpuscular HGB Conc 31 % (30-34); Mean Corpuscular Hemoglobin 31 pg (28-32); Mean Corpuscular Volume 100 fl (79-97); Platelet Count 82 K/mm3 (140-440); Red Blood Count 2.42 M/mm3 (3.65-5.03)
[2017-08-03 06:28] LABS: Chloride 99.4 mmol/L (98-107); Potassium 3.6 mmol/L (3.6-5.0)
[2017-08-03 06:59] LABS: Basophils % (Manual) 0 % (0.0-1.8); Blastocytes % (Manual) 0 %; Eosinophils % (Manual) 0 % (0.0-4.3); Stomatocytes 1+; Target Cells Few; Total Cells Counted Percent 0
[2017-08-03 07:00] LABS: Diff Status Complete; Platelet Estimate Appears Decreased
--- NOTE | 2017-08-03 07:35 | Vascular Lab Report ---
UPPER EXTREMITY VENOUS DUPLEX: REASON FOR EXAM: Pain and swelling of the upper extremities COMMENTS ON THE RIGHT: Nonocclusive thrombus noted in the axillary vein. The remaining veins visualized are freely compressible without evidence of internal echogenicity. Spontaneous and phasic flow is present proximally. COMMENTS ON THE LEFT: All arm veins visualized are freely compressible without evidence of internal echogenicity. The subclavian and internal jugular veins are free of thrombus. Flow is spontaneous and phasic throughout. IMPRESSION: Chronic deep venous thrombosis in the right upper extremity
--- NOTE | 2017-08-03 07:40 | Vascular Lab Report ---
MISCELLANEOUS VESSEL IDENTIFICATION: COMMENTS ON THE SCAN: The left common femoral vein was identified and under real-time ultrasound guidance was cannulated. IMPRESSION: Successful ultrasound guided vein cannulation.
[2017-08-03] MEDS: RENVELA PO SCH ×5 (08:00→17:24)
--- NOTE | 2017-08-03 08:52 | Progress Note ---
Assessment and Plan Assessment and plan: 77 y/0 female with ESRD on HD, CHF, HTN, Arrhythmia, DVT, DM, Right AKA, sacral pressure ulcer, chronic opiod dependance syndrome, sent from dialysis center for non functioning AV graft 1. LUE AV graft thrombosis Vascular surgery following, scheduled for thrombectomy today 2. ESRD Receiving HD through [facility] cath Nephrology assessing needs daily HD held today due to hypotension 3. Electrolyte abnormalities Hyponatremia, hypocalcemia, hyperkalemia Correction to HD 4. Acute on chronic systolic heart failure/cardiomyopathy AICD in place Fluid removal through HD; UF limited due to hypotension 5. Anasarca Due to heart failure, ESRD with inadequate fluid removal, severe hypoalbuminemia Fluid removal through HD tolerated 6. Hypotension Chronic due to cardiomyopathy and heart failure Hold beta marck Continue midodrine 7. Atrial fibrillation Rate controlled on amiodarone, beta marck - no hold due to hypotension No anticoagulation due to severe anemia and multiple comorbidities 8. Peripheral arterial disease Status post right AKA 9. Diabetes Accu-Cheks and SSI 10. Severe proteincaloric malnutrition Supplementation per dietitian 11. Multiple pressure ulcers Bedbound Wound care nurse consulted for local care 12. DVT/GI prophylaxis 13. Poor prognosis; discussed with patient's sons History Interval history: scheduled for AV graft thrombectomy today BP low, but no symptoms, no change in mental status no specific complaints family present at bedside Hospitalist Physical - Constitutional Vitals: Temp Pulse Resp BP Pulse Ox 99.2 F 66 18 71/32 97 08/03/17 08:26 08/03/17 08:26 08/03/17 08:26 08/03/17 08:26 08/03/17 08:26 General appearance: Present: no acute distress - EENT Eyes: Present: PERRL, EOM intact - Neck Neck: Present: supple. Absent: enlarged thyroid, masses or JVD - Respiratory Respiratory effort: normal Respiratory: bilateral: diminished, negative: rhonchi, wheezing - Cardiovascular Rhythm: regular Heart Sounds: Present: S1 & S2. Absent: systolic murmur - Extremities Extremities: no ischemia, abnormal (R AKA) - Abdominal General gastrointestinal: soft, non-tender, non-distended, normal bowel sounds - Psychiatric Psychiatric: cooperative - Neurologic Neurologic: no focal deficits - Additional findings Additional findings: Sacral decubitus Results - Labs CBC & Chem 7: 08/04/17 04:45 12/05/17 04:45 Labs: Laboratory Last Values WBC 7.0 K/mm3 (4.5-11.0) 08/03/17 05:50 RBC 2.42 M/mm3 (3.65-5.03) L 08/03/17 05:50 Hgb 7.5 gm/dl (10.1-14.3) L 08/03/17 05:50 Hct 24.3 % (30.3-42.9) L 08/03/17 05:50 MCV 100 fl (79-97) H 08/03/17 05:50 MCH 31 pg (28-32) 08/03/17 05:50 MCHC 31 % (30-34) 08/03/17 05:50 RDW 20.0 % (13.2-15.2) H 08/03/17 05:50 Plt Count 82 K/mm3 (140-440) L 08/03/17 05:50 Lymph % (Auto) 8.4 % (13.4-35.0) L 08/01/17 04:38 Mchenry % (Auto) 6.0 % (0.0-7.3) 08/01/17 04:38 Eos % (Auto) 0.2 % (0.0-4.3) 08/01/17 04:38 Baso % (Auto) 0.6 % (0.0-1.8) 08/01/17 04:38 Lymph # 0.8 K/mm3 (1.2-5.4) L 08/01/17 04:38 Mchenry # 0.6 K/mm3 (0.0-0.8) 08/01/17 04:38 Eos # 0.0 K/mm3 (0.0-0.4) 08/01/17 04:38 Baso # 0.1 K/mm3 (0.0-0.1) 08/01/17 04:38 Add Manual Diff Complete 08/03/17 05:50 Total Counted 100 08/03/17 05:50 Seg Neutrophils % Phlebotomist Medical Lab Assistant 08/03/17 05:50 Seg Neuts % (Manual) 88.0 % (40.0-70.0) H 08/03/17 05:50 Band Neutrophils % 11.0 % 08/03/17 05:50 Lymphocytes % (Manual) 1.0 % (13.4-35.0) L 08/03/17 05:50 Reactive Lymphs % (Man) 0 % 08/03/17 05:50 Monocytes % (Manual) 0 % (0.0-7.3) 08/03/17 05:50 Eosinophils % (Manual) 0 % (0.0-4.3) 08/03/17 05:50 Basophils % (Manual) 0 % (0.0-1.8) 08/03/17 05:50 Metamyelocytes % 0 % 08/03/17 05:50 Myelocytes % 0 % 08/03/17 05:50 Promyelocytes % 0 % 08/03/17 05:50 Blast Cells % 0 % 08/03/17 05:50 Nucleated RBC % Not Reportable 08/03/17 05:50 Seg Neutrophils # 7.9 K/mm3 (1.8-7.7) H 08/01/17 04:38 Seg Neutrophils # Man 6.2 K/mm3 (1.8-7.7) 08/03/17 05:50 Band Neutrophils # 0.8 K/mm3 08/03/17 05:50 Lymphocytes # (Manual) 0.1 K/mm3 (1.2-5.4) L 08/03/17 05:50 Abs React Lymphs (Man) 0.0 K/mm3 08/03/17 05:50 Monocytes # (Manual) 0.0 K/mm3 (0.0-0.8) 08/03/17 05:50 Eosinophils # (Manual) 0.0 K/mm3 (0.0-0.4) 08/03/17 05:50 Basophils # (Manual) 0.0 K/mm3 (0.0-0.1) 08/03/17 05:50 Metamyelocytes # 0.0 K/mm3 08/03/17 05:50 Myelocytes # 0.0 K/mm3 08/03/17 05:50 Promyelocytes # 0.0 K/mm3 08/03/17 05:50 Blast Cells # 0.0 K/mm3 08/03/17 05:50 WBC Morphology Not Reportable 08/03/17 05:50 Hypersegmented Neuts Not Reportable 08/03/17 05:50 Hyposegmented Neuts Not Reportable 08/03/17 05:50 Hypogranular Neuts Not Reportable 08/03/17 05:50 Smudge Cells Not Reportable 08/03/17 05:50 Toxic Granulation Not Reportable 08/03/17 05:50 Toxic Vacuolation Not Reportable 08/03/17 05:50 Dohle Bodies Not Reportable 08/03/17 05:50 Pelger-Huet Anomaly Not Reportable 08/03/17 05:50 Ludin Rods Not Reportable 08/03/17 05:50 Platelet Estimate Appears decreased 08/03/17 05:50 Clumped Platelets Not Reportable 08/03/17 05:50 Plt Clumps, EDTA Not Reportable 08/03/17 05:50 Large Platelets Not Reportable 08/03/17 05:50 Giant Platelets Not Reportable 08/03/17 05:50 Platelet Satelliting Not Reportable 08/03/17 05:50 Plt Morphology Comment Not Reportable 08/03/17 05:50 RBC Morphology Not Reportable 08/03/17 05:50 Dimorphic RBCs Not Reportable 08/03/17 05:50 Polychromasia Not Reportable 08/03/17 05:50 Hypochromasia Not Reportable 08/03/17 05:50 Poikilocytosis Not Reportable 08/03/17 05:50 Anisocytosis Not Reportable 08/03/17 05:50 Microcytosis Not Reportable 08/03/17 05:50 Macrocytosis Not Reportable 08/03/17 05:50 Spherocytes Not Reportable 08/03/17 05:50 Pappenheimer Bodies Not Reportable 08/03/17 05:50 Sickle Cells Not Reportable 08/03/17 05:50 Target Cells Few 08/03/17 05:50 Tear Drop Cells Not Reportable 08/03/17 05:50 Ovalocytes Not Reportable 08/03/17 05:50 Stomatocytes 1+ 08/03/17 05:50 Helmet Cells Not Reportable 08/03/17 05:50 [place] Bodies Not Reportable 08/03/17 05:50 [place] Rings Not Reportable 08/03/17 05:50 [place]ár[place] Cells Not Reportable 08/03/17 05:50 Bite Cells Not Reportable 08/03/17 05:50 Crenated Cell Not Reportable 08/03/17 05:50 Elliptocytes Not Reportable 08/03/17 05:50 Acanthocytes (Spur) Not Reportable 08/03/17 05:50 Rouleaux Not Reportable 08/03/17 05:50 Hemoglobin C Crystals Not Reportable 08/03/17 05:50 Schistocytes Not Reportable 08/03/17 05:50 Malaria parasites Not Reportable 08/03/17 05:50 Luciano Bodies Not Reportable 08/03/17 05:50 Hem Pathologist Commnt No 08/03/17 05:50 PT 16.2 Sec. (12.2-14.9) H 07/31/17 17:15 INR 1.23 (0.87-1.13) H 07/31/17 17:15 APTT 44.8 Sec. (24.2-36.6) H 07/31/17 17:15 Sodium 138 mmol/L (137-145) 08/03/17 05:50 Potassium 3.6 mmol/L (3.6-5.0) 08/03/17 05:50 Chloride 99.4 mmol/L (98-107) 08/03/17 05:50 Carbon Dioxide 28 mmol/L (22-30) 08/03/17 05:50 Anion Gap 14 mmol/L 08/03/17 05:50 BUN 11 mg/dL (7-17) 08/03/17 05:50 Creatinine 1.8 mg/dL (0.7-1.2) H 08/03/17 05:50 Estimated GFR 27 ml/min 08/03/17 05:50 BUN/Creatinine Ratio 6 % 08/03/17 05:50 Glucose 115 mg/dL (65-100) H 08/03/17 05:50 POC Glucose 121 (70-105) H 08/03/17 06:16 Calcium 7.0 mg/dL (8.4-10.2) L 08/03/17 05:50 Total Bilirubin 0.20 mg/dL (0.1-1.2) 08/01/17 04:38 AST 10 units/L (5-40) 08/01/17 04:38 ALT 6 units/L (7-56) L 08/01/17 04:38 Alkaline Phosphatase 90 units/L (35-129) 08/01/17 04:38 Total Protein 4.4 g/dL (6.3-8.2) L 08/01/17 04:38 Albumin 1.6 g/dL (3.9-5) L 08/01/17 04:38 Albumin/Globulin Ratio 0.6 % 08/01/17 04:38
[2017-08-03] MEDS ORDERED: NACL 0.9% 1000 ML 250 ML IV ONE (09:00)
[2017-08-03] MEDS: CORDARONE PO SCH (09:06)
[2017-08-03] MEDS: COLACE PO SCH (09:06)
[2017-08-03] MEDS: ALLBEE WITH C PO SCH (09:06)
[2017-08-03] MEDS: FOLVITE PO SCH (09:06)
[2017-08-03] MEDS: LOPRESSOR PO SCH ×2 (09:08→22:27)
[2017-08-03] MEDS: PROTONIX PO SCH (09:09)
[2017-08-03] MEDS: PLAVIX PO SCH ×2 (09:09→17:23)
[2017-08-03] MEDS: ZOLOFT PO SCH (09:09)
[2017-08-03] MEDS: SODIUM BICARBONATE PO SCH ×2 (09:09→22:00)
[2017-08-03] MEDS: PROAMATINE PO SCH ×2 (09:09→09:38)
[2017-08-03] MEDS: XANAX PO SCH ×2 (09:09→22:00)
[2017-08-03] MEDS: HEPARIN SUB-Q SCH ×2 (09:15→22:00)
--- NOTE | 2017-08-03 10:12 | Progress Note ---
Assessment and Plan Impression * End-stage renal disease on maintenance hemodialysis * Clotted AV access * Fluid overload * Cardiomyopathy * History of obstructive uropathy * Coronary artery disease * Hypertension * Anemia secondary to ESRD * Hypokalemia Recommendations * Patient had uneventful hemodialysis yesterday . * Shall dialyze her after her thrombectomy * HD on Mondays, Wednesdays and Fridays * Shall administer Procrit with dialysis * Adjust diet and meds for ESRD state * Binders with diet * Replace potassium Subjective Date of service: 08/03/17 Principal diagnosis: Clotted Access Interval history: Patient feels better today. Denies any shortness of breath. No nausea vomiting or diarrhea Objective - Exam Narrative Exam: General appearance: well-developed, well-nourished, appears stated age EENT: PERRL, mucous membranes moist Neck: no JVD, no thyromegaly, no carotid bruit, supple Respiratory: Present: Clear to Ascultation Cardiology: regular, normal heart rate Gastrointestinal: normal, normoactive bowel sounds Integumentary: other (right above-knee amputation. 1+ pitting edema. Left femoral Vas-Cath in place) - Vital Signs Vital signs: Vital Signs - 12hr 08/03/17 08/03/17 08/03/17 04:52 08:10 08:11 Temperature 97.7 F 99.2 F Pulse Rate 70 66 Respiratory 18 18 Rate Blood Pressure 90/39 76/34 Blood Pressure [Left] O2 Sat by Pulse 100 96 96 Oximetry 08/03/17 08/03/17 08:26 09:35 Temperature 99.2 F Pulse Rate 66 66 Respiratory 18 Rate Blood Pressure 71/32 Blood Pressure 77/28 [Left] O2 Sat by Pulse 97 Oximetry - Lab 08/03/17 05:50 08/03/17 05:50 Most recent lab results Calcium 7.0 mg/dL (8.4-10.2) L 08/03/17 05:50
[2017-08-03] MEDS ORDERED: HEPARIN/NS 5000 UNIT/500ML(CATH LAB) 500 ML IR ONE (14:56)
[2017-08-03] MEDS ORDERED: HEPARIN 10,000 UNITS/10 ML ONE (14:56)
[2017-08-03] MEDS ORDERED: WATER FOR INJ (PF) 10 ML ONE ×2 (14:57→15:21)
[2017-08-03] MEDS ORDERED: CATHFLO ONE (14:57)
[2017-08-03] MEDS ORDERED: XYLOCAINE 2% INFILTRATI ONE (14:57)
[2017-08-03] MEDS ORDERED: SUBLIMAZE ONE (14:57)
[2017-08-03] MEDS ORDERED: VERSED ONE (14:57)
[2017-08-03] MEDS ORDERED: ANCEF/STERILE WATER 2 GM/20 ML 0 GM/0 ML SYRINGE IV ONE (14:58)
--- NOTE | 2017-08-03 16:21 | Operative Report ---
Operative Report Operative Report: EXAM: LEFT UPPER EXTREMITY FISTULOGRAM, THROMBECTOMY AND VENOPLASTY CLINICAL INDICATION: PATIENT WITH HISTORY OF A THROMBOSED LEFT UPPER EXTREMITY BRACHIAL BASILIC GRAFT DATE: 08/03/2017 PROCEDURE: Following an explanation of the risks, benefits and alternatives; written informed consent was obtained. The patient was brought into angiographic suite and placed in supine position on the examination table. Initial evaluation of the arm demonstrated a thrombosed graft. The left arm was prepped and draped in the usual sterile fashion. 1% N was used for anesthesia. Under ultrasound, fistula was cannulated towards the venous anastomosis using a 7 cm 21-gauge needle. A 1035 guidewire was advanced centrally. The needle was removed and a 7 Australian sheath placed. Access was obtained towards the arterial anastomosis in a similar fashion and an additional [address] A 4 [place] copy catheter was advanced over the guidewire centrally. The central veins are widely patent. There is thrombus extending from the venous anastomosis to the arterial anastomosis. The graft was laced with 4 mg of TPA. Following well time of 5 minutes, mechanical thrombectomy was performed from both arterial and venous sheaths using a treatment all mechanical thrombectomy device. Post thrombectomy imaging demonstrated an arterial anastomosis stenosis of approximately 80%. An additional stenosis is present within the middle aspect of the graft and an 80% stenosis is present at the venous anastomosis. Angioplasty of the graft stenosis and venous anastomotic stenosis were performed using an 8 mm balloon. Anteroposterior the arterial anastomosis was performed using a 4 mm arterial balloon. The copy catheter was advanced over the guidewire through the arterial lumen into the brachial artery and additional angiographic imaging demonstrated chronic appearing thrombus at the arterial anastomosis. Additional mechanical thrombectomy was performed with only minimal improvement. A palpable thrill however was present throughout the graft. At this point, the guidewires, catheters and sheaths were removed and hemostasis achieved using 3-0 Vicryl suture. Dermabond was also applied to the entrance sites. The patient tolerated the procedure well. There were no immediate post procedure palpitations. Conscious sedation was performed under the guidance of radiologic nursing. Continuous cardiopulmonary monitoring was utilized. IMPRESSION: 1) Left upper extremity fistulogram demonstrating thrombus throughout the graft from arterial anastomosis to the venous anastomosis. 2) Stenosis of 80% at the arterial anastomosis, stenosis of 80% at the venous anastomosis within mid graft stenosis of 60-70%. 3) Thrombectomy of the graft using T[place] mechanical thrombectomy devices. 4) Venoplasty as described with a palpable thrill present at the conclusion of the case.
--- NOTE | 2017-08-03 19:10 | Event Note ---
Date: 08/03/17 BP low, but no symptoms, no change in mental status; manually checked better with SBP in upper 80s-low 90s. Hold BB, continue midodrine; no ivf as she is fluid overload; HD held today Noted to have small amounts bright red blood per mouth; no coughing, no retching ; denies any pain, nausea; Coumadin has been held during this hospitalization; on Plavix and subcutaneous heparin; today received heparin during lab pack chemist procedure; has anemia of chronic kidney disease and chronic inflammation with hemoglobin 7.5 this morning; check H&H frequently and transfuse if hemoglobin less than 7; if bleeding continues, will attempt NG tube placement to differentiate between GI bleed and hemoptysis; give IV Protonix
[2017-08-03] MEDS: PROTONIX IV SCH (21:29)
[2017-08-03 21:56] LABS: Hematocrit 23.2 % (30.3-42.9); Hemoglobin 7.1 gm/dl (10.1-14.3)
[2017-08-04 01:40] LABS: Hematocrit 23.4 % (30.3-42.9); Hemoglobin 7.1 gm/dl (10.1-14.3)
[2017-08-04 05:11] LABS: Basophils % (Auto) 0.3 % (0.0-1.8); Eosinophils % (Auto) 1.1 % (0.0-4.3); Hematocrit 22.7 % (30.3-42.9); Hemoglobin 7.1 gm/dl (10.1-14.3); Mean Corpuscular HGB Conc 31 % (30-34); Mean Corpuscular Hemoglobin 32 pg (28-32); Mean Corpuscular Volume 102 fl (79-97); Red Blood Count 2.23 M/mm3 (3.65-5.03); White Blood Count 10.4 K/mm3 (4.5-11.0)
[2017-08-04 05:18] LABS: Platelet Count 73 K/mm3 (140-440); Red Cell Distribution Width 20.4 % (13.2-15.2)
[2017-08-04 05:23] LABS: INR 1.37 (0.87-1.13)
[2017-08-04 05:38] LABS: Potassium 4.2 mmol/L (3.6-5.0)
[2017-08-04] MEDS: NEURONTIN PO SCH (05:53)
[2017-08-04] MEDS: RENVELA PO SCH ×2 (08:00→12:00)
--- NOTE | 2017-08-04 08:46 | Progress Note ---
Assessment and Plan Impression * End-stage renal disease on maintenance hemodialysis * Clotted AV access * Fluid overload * Cardiomyopathy * History of obstructive uropathy * Coronary artery disease * Hypertension * Anemia secondary to ESRD * Hypokalemia Recommendations: * HD on today and q tthsat * Shall administer Procrit with dialysis * Adjust diet and meds for ESRD state * Binders with diet * Replace potassium Subjective Date of service: 08/04/17 Principal diagnosis: Clotted Access Interval history: Patient feels better today. Denies any shortness of breath. No nausea vomiting or diarrhea Objective - Exam Narrative Exam: General appearance: well-developed, well-nourished, appears stated age EENT: PERRL, mucous membranes moist Neck: no JVD, no thyromegaly, no carotid bruit, supple Respiratory: Present: Clear to Ascultation Cardiology: regular, normal heart rate Gastrointestinal: normal, normoactive bowel sounds Integumentary: other (right above-knee amputation. 1+ pitting edema. Left femoral Vas-Cath in place) - Vital Signs Vital signs: Vital Signs - 12hr 08/03/17 08/03/17 08/03/17 21:00 22:00 22:27 Temperature Pulse Rate 70 70 Respiratory 16 Rate Blood Pressure 86/47 Blood Pressure [Right] O2 Sat by Pulse 95 98 Oximetry 08/04/17 08/04/17 00:10 04:26 Temperature 97.5 F L Pulse Rate 70 Respiratory 20 Rate Blood Pressure 119/43 Blood Pressure 90/54 [Right] O2 Sat by Pulse Oximetry - Lab 08/04/17 04:45 08/04/17 04:45 Most recent lab results Calcium 7.0 mg/dL (8.4-10.2) L 08/04/17 04:45
[2017-08-04] MEDS: ALLBEE WITH C PO SCH (10:45)
[2017-08-04] MEDS: LOPRESSOR PO SCH (10:45)
[2017-08-04] MEDS: COLACE PO SCH (10:45)
[2017-08-04] MEDS: HEPARIN SUB-Q SCH (10:45)
[2017-08-04] MEDS: CORDARONE PO SCH (10:45)
[2017-08-04] MEDS: FOLVITE PO SCH (10:45)
[2017-08-04] MEDS: XANAX PO SCH (10:46)
[2017-08-04] MEDS: ZOLOFT PO SCH (10:46)
[2017-08-04] MEDS: PLAVIX PO SCH (10:46)
[2017-08-04] MEDS: PROTONIX IV SCH (10:46)
[2017-08-04] MEDS: SODIUM BICARBONATE PO SCH (10:46)
[2017-08-04] MEDS ORDERED: NACL 0.9% 100 ML IV PRN (11:00)
--- NOTE | 2017-08-04 11:07 | Vascular Lab Report ---
MISCELLANEOUS VESSEL IDENTIFICATION: The arteriovenous access was identified in the left arm and under real-time ultrasound guidance was cannulated. IMPRESSION: Successful ultrasound guided cannulation of the arteriovenous access site.
[2017-08-04] MEDS: PROAMATINE PO SCH (11:32)
[2017-08-04] MEDS ORDERED: NACL 0.9 (PRIMING MACHINE ONLY DIALYSIS) MC ONE ×2 (11:40→16:54)
--- NOTE | 2017-08-04 12:52 | Event Note ---
Date: 08/04/17 Responded to a CODE BLUE on the floor. Patient actively receiving CPR and bag valve mask ventilation. On site nurses cannot tell me exactly how long the patient has been pulseless for. They think the patient's initial rhythm was pulseless electrical activity. Under my direct supervision, the patient receives high-quality CPR, 2 rounds of sodium bicarbonate, 2 A of calcium chloride, 1 amp of epinephrine, 10 units of insulin, 1 amp of D50. Patient was intubated using direct laryngoscopy using a Yohannes 3 blade, with a 7-0 endotracheal tube. There is good postintubation color change. Patient has a left femoral central line. Dr. Ramirez was also present during the patient's resuscitation, and I will defer to her postintubation and post-return of spontaneous circulation management. I will defer to the inpatient team to obtain postarrest EKG, postintubation x-ray, postintubation labs. Patient may benefit from a palliative care consult.
[2017-08-04] MEDS ORDERED: XANAX PO SCH (13:00)
--- NOTE | 2017-08-04 13:45 | Event Note ---
Date: 08/04/17 CODE NIA Became unresponsive during dialysis; lost pulse. ACLS protocol initiated. Was emergently intubated, received CPR, multiple rounds of epinephrine, bicarbonate , calcium, D50. Despite all measures there was no return of spontaneous circulation. pronounced at 1257. Family present.
--- NOTE | 2017-08-04 13:46 | Death Summary ---
Summary - Providers Date of service: 08/04/17 Consults: 08/01/17 07:08 Consult to Physician [CONS] Routine Consulting Provider: NARCISO TAMAYO Reason For Exam: Clotted Access Place consult to:: Notified:: Phone number called:: [phone] Was contact made?: Yes If yes, spoke with:: Arian Time called:: 08:30 Comment:: KENYA 08/01/17 07:09 Consult to Physician [CONS] Routine Consulting Provider: KYRA AYALA Reason For Exam: esrd Place consult to:: JAMIE RICHARDS Notified:: Phone number called:: [phone] Was contact made?: Yes If yes, spoke with:: SAMIRA Time called:: 08:25 Comment:: KENYA 08/01/17 08:02 Consult to Dietitian/Nutrition [CONS] Routine Physician Instructions: Reason For Exam: Reason for Consult: Malnutrition 08/01/17 08:47 Consult to Wound/ET Nurse [CONS] Routine Reason For Exam: wound eval Attending: SARAH MADRID - summary Date of admission: 07/31/17 22:34 Date of : 08/04/17 (12:57 pm) Reason for admission: AVF malfunction Significant findings: Patient was a 77 year old female with ESRD on HD, Anemia, CHF, Chronic Hypotension, Arrhythmia, DVT, PAD s/p AKA, DM, Malnutrition, Sacral Pressure Ulcer, Chronic opiod dependance syndrome, with multiple admissions in the last few months, sent to ER from dialysis center for non functioning AV graft. Vascular ultrasound obtained and vascular surgery consulted; found to have a clotted AV fistula and underwent thrombectomy. [place] [facility] [place], but her stay was complicated for refractory hypotension that limit significantly the fluid removal. On 08/04 became unresponsive during dialysis and lost pulse. ACLS protocol followed. Was emergently intubated, received CPR, multiple rounds of epinephrine, bicarbonate, calcium, D50. Despite all measures there was no return of spontaneous circulation. pronounced at 1257. Family present. Diagnoses: Cardiac arrest Acute on chronic systolic heart failure/cardiomyopathy Hypotension Anasarca Arrhythmia ESRD on HD Electrolytes abnormalities Thrombosed AV graft Peripheral arterial disease Diabetes Severe protein calorie malnutrition Multiple decubitus ulcers
[2017-08-04] MEDS ORDERED: D50W (25GM) Syringe IV ONE (14:31)
[2017-08-04] MEDS ORDERED: SODIUM BICARBONATE IV ONE (14:31)
[2017-08-04] MEDS ORDERED: ADRENALIN ONE (14:31)
[2017-08-04] MEDS ORDERED: CALCIUM CHLORIDE IV ONE (14:31)
[2017-08-04] MEDS ORDERED: ADRENALIN IV ONE (14:31)
[2017-08-04] MEDS ORDERED: INTROPIN DRIP 800 MG/D5W 250 ML IV ONE (14:31)
[2017-08-04 14:34] VITALS: BP 94/50
== END 2017-08-04 17:18 | DRG 252 ==
LOC: ED 13:46 → 3A 22:34 → 2B-ACE 23:08
PROVIDERS: ADMIT Internal Medicine; ATTEND Internal Medicine
PROC: 06H033Z Insertion of Infusion Device into Inferior Vena Cava, Percutaneous Approach (ICD-10-PCS; 2017-07-31)
PROC: B5191ZA Fluoroscopy of Inferior Vena Cava using Low Osmolar Contrast, Guidance (ICD-10-PCS; 2017-07-31)
PROC: 5A1D70Z Performance of Urinary Filtration, Intermittent, Less than 6 Hours Per Day (ICD-10-PCS; 2017-08-01)
PROC: 05CA3ZZ Extirpation of Matter from Left Brachial Vein, Percutaneous Approach (ICD-10-PCS; principal; 2017-08-03)
PROC: 03783ZZ Dilation of Left Brachial Artery, Percutaneous Approach (ICD-10-PCS; 2017-08-03)
PROC: 057C3ZZ Dilation of Left Basilic Vein, Percutaneous Approach (ICD-10-PCS; 2017-08-03)
PROC: 05CC3ZZ Extirpation of Matter from Left Basilic Vein, Percutaneous Approach (ICD-10-PCS; 2017-08-03)
PROC: 3E03317 Introduction of Other Thrombolytic into Peripheral Vein, Percutaneous Approach (ICD-10-PCS; 2017-08-03)
PROC: 057A3ZZ Dilation of Left Brachial Vein, Percutaneous Approach (ICD-10-PCS; 2017-08-03)
PROC: B31J1ZZ Fluoroscopy of Left Upper Extremity Arteries using Low Osmolar Contrast (ICD-10-PCS; 2017-08-03)
PROC: 0BH17EZ Insertion of Endotracheal Airway into Trachea, Via Natural or Artificial Opening (ICD-10-PCS; 2017-08-03)
PROC: 5A1D70Z Performance of Urinary Filtration, Intermittent, Less than 6 Hours Per Day (ICD-10-PCS; 2017-08-04)
DX: T82.868A Thrombosis due to vascular prosthetic devices, implants and grafts, initial encounter (principal); N18.6 End stage renal disease; E43 Unspecified severe protein-calorie malnutrition; I50.42 Chronic combined systolic (congestive) and diastolic (congestive) heart failure; I13.2 Hypertensive heart and chronic kidney disease with heart failure and with stage 5 chronic kidney disease, or end stage renal disease; J96.10 Chronic respiratory failure, unspecified whether with hypoxia or hypercapnia; I42.9 Cardiomyopathy, unspecified; F11.20 Opioid dependence, uncomplicated; E87.1 Hypo-osmolality and hyponatremia; Z99.2 Dependence on renal dialysis; I95.9 Hypotension, unspecified; I49.9 Cardiac arrhythmia, unspecified; K21.9 Gastro-esophageal reflux disease without esophagitis; J44.9 Chronic obstructive pulmonary disease, unspecified; E11.22 Type 2 diabetes mellitus with diabetic chronic kidney disease; M19.90 Unspecified osteoarthritis, unspecified site; I25.10 Atherosclerotic heart disease of native coronary artery without angina pectoris; Y83.8 Other surgical procedures as the cause of abnormal reaction of the patient, or of later complication, without mention of misadventure at the time of the procedure; E11.51 Type 2 diabetes mellitus with diabetic peripheral angiopathy without gangrene; G89.29 Other chronic pain; E87.70 Fluid overload, unspecified; D63.1 Anemia in chronic kidney disease; I48.91 Unspecified atrial fibrillation; E86.1 Hypovolemia; E87.6 Hypokalemia; L89.90 Pressure ulcer of unspecified site, unspecified stage; Z95.5 Presence of coronary angioplasty implant and graft; Z95.1 Presence of aortocoronary bypass graft; Z68.20 Body mass index [BMI] 20.0-20.9, adult; I25.2 Old myocardial infarction; Z86.718 Personal history of other venous thrombosis and embolism; Z95.0 Presence of cardiac pacemaker; Z90.49 Acquired absence of other specified parts of digestive tract; Z89.611 Acquired absence of right leg above knee; Z79.899 Other long term (current) drug therapy; Z82.49 Family history of ischemic heart disease and other diseases of the circulatory system; Z88.5 Allergy status to narcotic agent; Z88.2 Allergy status to sulfonamides; Y92.89 Other specified places as the place of occurrence of the external cause; Z99.81 Dependence on supplemental oxygen
CPT/HCPCS: 36415; 36556; 36905; 76937; 80048; 80053; 82962; 85007; 85014; 85018; 85025; 85027; 85610; 85730; 93970; 94760; C1725; C1752; C1757; C1769; C1894; C9113; J0171; J0690; J0885; J1265; J1644; J2250; J2270; J2405; J2997; J3010; J7030; Q9967